=== PATIENT | female | born 1960 | race Caucasian/White ===

== ENCOUNTER 2017-01-09 18:35 | Emergency (ER) | payer BC ==
[~2017-01-09] VITALS: Ht 157.5 cm; Wt 80.7 kg
[~2017-01-09 18:35] MED LIST: ALLOPURINOL100 MG PO; ASPIRIN ADULT L81 M3 PO; AUGMENTIN 875-1 EACH PO; CLINDAMYCIN HC300 MG PO; DULOXETINE60 MG PO; FERROUS SULFAT325 M1 PO; GABAPENTIN300 MG PO; LOSARTAN POTASS1 TA1 PO; NEXIUM40 MG PO; SIMVASTATIN40 MG PO; TIZANIDINE HCL 44 MG PO; TOPAMAX100 MG PO; TRAZADONE HYDR100 MG PO; VALACYCLOVIR H500 M1 PO; ZOLPIDEM 10MG T10 MG PO
[2017-01-09 18:58] LABS: URINE BILIRUBIN - DIPSTICK 1+ (NEG); URINE BLOOD 1+ (NEG)
--- NOTE | 2017-01-09 19:18 | Urgent Treatment Center Report ---
History of Present Issue Date/Time Seen by Provider 01/09/171917 Visit Reason Pt arrived:Walked Presenting Problem:PT C/O POSSIBLE UTI. STATES HER LOWER BACK IS HURTING AND C/O PAIN WITH URINATION Location if Accident: Onset of symptoms date/time:/ or onset unknown for:MEDICAL HX UNKNOWN Have you (or family members/close friends) recently traveled outside the [place]? N If Yes, where/when: Have you had exposure to infectious disease within the past month? TB? Other? Specify: c/o constant dysuria w/ low back pain x 1-2 days. No fever. urine dark just this evening. Mild intermittent nausea "now that you mention it". Denies urinary frequency, fever, chills. No treatment prior to arrival. Hx UTIs but not x years. Source patient Exam Limitations no limitations ALLERGIES Coded Allergies: promethazine (From PHENERGAN) (Intermediate, 10/12/16) Home Medications Active Scripts Clindamycin Hcl (Clindamycin 300MG) 300 MG PO TID 10 Days Prov: 12/15/16 Amoxicillin/Potassium Clav (Augmentin 875-125 Tablet) 1 EACH PO BID 10 Days Prov: 12/15/16 Reported Medications Gabapentin (Gabapentin 300MG) 300 MG PO BID Topiramate (Topamax) 25 MG PO BID LOSARTAN/HYDROCHLOROTHIAZIDE (Losartan-Hctz 100-25 MG Tab) 1 TAB PO DAILY #30 TAB DULOXETINE HCL (Duloxetine) 60 MG PO DAILY #90 CAP Esomeprazole Magnesium (Nexium 40MG Cap) 40 MG PO BID Simvastatin (Simvastatin 40MG Tab) 40 MG PO DAILY #90 Aspirin (Aspirin EC) 81 MG PO DAILY #30 Zolpidem Tartrate (Zolpidem 10MG) 10 MG PO QHS #30 Allopurinol 100 MG PO DAILY #90 Ferrous Sulfate (Ferrous Sulfate 325MG) 325 MG PO DAILY #30 History Medical History General CAD? No Angina: No [place]: No Hypertension? Yes Hyperlipidemia? Yes CHF? No DVT? No PE? No COPD? No Asthma? No Anemia? No GERD? No Gastric ulcers? No GI Bleed? No Hernia? No Thyroid Problems? No Hypothyroidism? No CVA? No Seizures? No Diabetes? No Renal Insuffiency? No UTI? No Stones? No BPH? No GB Disease: Yes Nephritic Syndrome? No Asplenia? No Hepatitis? No Sickle Cell Disease? No Arthritis? No Migraines? No Cataracts? No Glaucoma? No MRSA? No HIV? No TB? No Anxiety? Yes Depression? No Cancer? No More? Yes Additional hx: IBS Immunization HX DT/Tetanus 06/18/11 Flu Refused Pneumonia Excluded/Contraindicated Surgical Hx Previous Surgery?Y ROTATOR CUFF HYSTERECTOMY RIGHT WRIST SURGERY BELLY TUCK GALLBLADDER Family History Family HX Diabetes Yes CAD Yes Hypertension Yes Hyperlipidemia Yes Cancer Yes TB No Social History Smoking Hx Smoker: Never Smoker Tobacco: No Alcohol Alcohol: No Review of Systems All Other Systems Reviewed and Negative Constitutional see HPI Gastrointestinal see HPI, denies abdominal pain Genitourinary see HPI. denies: discharge, hesitancy, genital lesions, other (vaginal pain). Musculoskeletal see HPI Skin denies change in color, denies lesions, denies lumps, denies rash Psychiatric/Neurological denies headache Physical Exam Vital Signs Vital Signs Date Time Temp Pulse Resp B/P Pulse O2 O2 Flow FiO2 Ox Delivery Rate 01/09 2026 98.8 104 18 148/73 97 01/09 185 98.8 104 18 148/73 97 General Appearance no apparent distress, obese Respiratory Status No: respiratory distress. Cardiovascular no peripheral edema Gastrointestinal normal bowel sounds, non tender, soft, no guarding, no rebound, mild suprapubic tenderness, no bladder distention Back no CVA tenderness Neurologic alert, oriented x 3 Skin normal color, warm/dry Medical Decision Making LABS/Meds/Orders Pt receiving controlled substance in ED? No Results/Orders Laboratory Tests 01/09/17 1845: Urine Color YELLOW, Urine Appearance Clear, Urine pH 6.0, Ur Specific [place] 1.025, Urine Protein 30, Urine Ketones NEGATIVE, Urine Blood 1+ H, Urine Nitrate NEGATIVE, Urine Bilirubin 1+ H, Urine Urobilinogen 0.2, Ur Leukocyte Esterase TRACE H, Urine Glucose NEGATIVE Current Medication Orders Sig/Andra Start time Last Medication Dose Route Stop Time Status Admin Phenazopyridine HCl 200 MG ONCE ONE 01/09 2015 DC 01/09 PO 01/09 Trimethoprim/ 1 TABLET ONCE ONE 01/09 2015 DCr 01/09 Sulfamethoxazole PO 01/09 Phenazopyridine HCl 0 .STK-MED ONE 01/09 2013 DC PO Trimethoprim/ 0 .STK-MED ONE 01/09 2011 DC Sulfamethoxazole PO Orders Procedure Date/time Status CULTURE, URINE 01/[address] [facility] URINE DIPSTICK 01/09 1845 Complete Departure Departure Time of Disposition 2002 Disposition DC Home or Self Care(routine) Clinical Impression Primary Impression: UTI (urinary tract infection) Qualifiers: Urinary tract infection type: site unspecified Hematuria presence: with hematuria Qualified Code: N39.0 - Urinary tract infection, site not specified Condition STABLE Referrals Zaina Vasquez APRN (Family) * Be SURE to follow up anytime for new or worsening symptoms, AND in 48 hours for culture resultsAND in 10-14 days to repeat UA and ensure infection resolved and blood no longer present. Patient Instructions DI for Urinary Tract Infection (UTI) Additional Instructions * increase fluids, Water and NOT soda or tea * Start antibiotic tomorrow since we gave first dose in clinic and be sure to take as ordered for the FULL length of time although you should start to see improvement over the next 48 hours. * pyridium as needed. Remember this will turn your urine ORANGE, this is normal but will stain whatever it gets on. This includes tears and contacts. Try not to wear contacts due to risk of staining orange. * You should not need the pyridium longer than 48 hours. If so, follow up with primary care to review urine culture and ensure antibiotic is adequate * Be sure to let your PCP (or whoever you follow up with) know we sent urine culture so they can request records and ensure you are on the appropriate antibiotic if you are not getting better or getting worse!!! Discharge Counseling Counseled pt/family regarding diagnosis, test results, medications/RX, home care, follow up needs Prescriptions Current Visit Scripts SULFAMETHOXAZOLE W/TRIMETHOPRI (Bactrim Ds Tab) 1 TABLET PO BID #13 TAB gave first dose in clinic Phenazopyridine HCl (Pyridium) 200 MG PO TIDP PRN dysuria #6 TAB at 2109
[2017-01-09] MEDS ORDERED: PYRIDIUM200 M2 PO (20:06)
[2017-01-09] MEDS ORDERED: BACTRIM DS 8001 TA1 PO (20:06)
[2017-01-09 20:26] VITALS: BP 148/73
== END 2017-01-09 20:26 | disposition home or self-care (01) ==
LOC: UTC 18:35
PROVIDERS: Nurse Practitioner Family
DX: N39.0 Urinary tract infection, site not specified (principal); I10 Essential (primary) hypertension; E78.5 Hyperlipidemia, unspecified; F41.9 Anxiety disorder, unspecified; Z79.899 Other long term (current) drug therapy; Z88.8 Allergy status to other drugs, medicaments and biological substances; Z79.82 Long term (current) use of aspirin

== ENCOUNTER → 2017-01-12 | Outpatient (CLI) | payer BC ==
[~2017-01-12] MED LIST changes: +BACTRIM DS 8001 TA1 PO; +PYRIDIUM200 M2 PO
[2017-01-12 17:15] LABS: BUN 11 mg/dL (7-18)
[2017-01-12 17:32] LABS: GFR (ESTIMATED) 87 ML/MIN (59-)
[2017-01-14 05:36] LABS: RA Latex Turbid. <10.0 IU/mL (0.0-13.9)
[2017-01-14 16:37] LABS: Albumin 3.8 g/dL (2.9-4.4); Alpha-1-Globulin 0.2 g/dL (0.0-0.4); Alpha-2-Globulin 0.7 g/dL (0.4-1.0); Gamma Globulin 1.1 g/dL (0.4-1.8); Protein, Total 7.1 g/dL (6.0-8.5)
[2017-01-15 03:36] LABS: Protein C-Functional 173 % (73-180)
== END ==
LOC: LAB 16:10
PROVIDERS: Nurse Practitioner Family
DX: M79.7 Fibromyalgia (principal); R53.82 Chronic fatigue, unspecified

== ENCOUNTER → 2017-01-24 | Outpatient (CLI) | payer BC ==
[2017-01-24 17:21] LABS: BUN 10 mg/dL (7-18)
[2017-01-24 17:28] LABS: GFR (ESTIMATED) 104 ML/MIN (59-)
== END ==
LOC: LAB 15:05
PROVIDERS: Nurse Practitioner Family
DX: E87.6 Hypokalemia (principal)

== ENCOUNTER → 2017-02-21 | Outpatient (CLI) | payer BC ==
[2017-02-23 12:41] LABS: RA Latex Turbid. <10.0 IU/mL (0.0-13.9)
[2017-02-24 12:36] LABS: Antinuclear Antibodies, IFA Negative (.)
== END ==
LOC: LAB 18:18
PROVIDERS: Emergency Medicine
DX: G89.29 Other chronic pain (principal)

== ENCOUNTER 2017-03-20 14:28 | Emergency (ER) | payer BC ==
[~2017-03-20] VITALS: Ht 157.5 cm; Wt 86.6 kg
--- NOTE | 2017-03-20 14:59 | Urgent Treatment Center Report ---
History of Present Issue Date/Time Seen by Provider 03/20/17 5316 Visit Reason Pt arrived:Walked Presenting Problem:CURRENTLY ON Z-NED, EAR ACHE, CONGESTION, FEELING WORSE Location if Accident: Onset of symptoms date/time:/ or onset unknown for:MEDICAL HX UNKNOWN Have you (or family members/close friends) recently traveled outside the [place]? N If Yes, where/when: Have you had exposure to infectious disease within the past month? TB? Other? Specify: Patient state that she was seen on Tuesday and given Z-pack State that she has been taking the Zpack but her symptoms have continued to get worse. State that her left ear has been hurting and she is having sinus pain and congestion State that she noticed that her sinus drainage appeared thicker and darker ALLERGIES Coded Allergies: promethazine (From PHENERGAN) (Intermediate, 10/12/16) Home Medications Active Scripts SULFAMETHOXAZOLE W/TRIMETHOPRI (Bactrim Ds Tab) 1 TABLET PO BID #13 TAB Prov: 01/09/17 Phenazopyridine HCl (Pyridium) 200 MG PO TIDP PRN dysuria #6 TAB Prov: 01/09/17 Clindamycin Hcl (Clindamycin 300MG) 300 MG PO TID 10 Days Prov: 12/15/16 Amoxicillin/Potassium Clav (Augmentin 875-125 Tablet) 1 EACH PO BID 10 Days Prov: 12/15/16 Reported Medications Gabapentin (Gabapentin 300MG) 300 MG PO BID Topiramate (Topamax) 25 MG PO BID LOSARTAN/HYDROCHLOROTHIAZIDE (Losartan-Hctz 100-25 MG Tab) 1 TAB PO DAILY #30 TAB DULOXETINE HCL (Duloxetine) 60 MG PO DAILY #90 CAP Esomeprazole Magnesium (Nexium 40MG Cap) 40 MG PO BID Simvastatin (Simvastatin 40MG Tab) 40 MG PO DAILY #90 Aspirin (Aspirin EC) 81 MG PO DAILY #30 Zolpidem Tartrate (Zolpidem 10MG) 10 MG PO QHS #30 Allopurinol 100 MG PO DAILY #90 Ferrous Sulfate (Ferrous Sulfate 325MG) 325 MG PO DAILY #30 History Medical History General CAD? No Angina: No [place]: No Hypertension? Yes Hyperlipidemia? Yes CHF? No DVT? No PE? No COPD? No Asthma? No Anemia? No GERD? No Gastric ulcers? No GI Bleed? No Hernia? No Thyroid Problems? No Hypothyroidism? No CVA? No Seizures? No Diabetes? No Renal Insuffiency? No UTI? No Stones? No BPH? No GB Disease: Yes Nephritic Syndrome? No Asplenia? No Hepatitis? No Sickle Cell Disease? No Arthritis? No Migraines? No Cataracts? No Glaucoma? No MRSA? No HIV? No TB? No Anxiety? Yes Depression? No Cancer? No More? Yes Additional hx: IBS Immunization HX DT/Tetanus 06/18/11 Flu Refused Pneumonia Excluded/Contraindicated Surgical Hx Previous Surgery?Y ROTATOR CUFF HYSTERECTOMY RIGHT WRIST SURGERY BELLY ALEJANDRA GALLBLADDER Family History Family HX Diabetes Yes CAD Yes Hypertension Yes Hyperlipidemia Yes Cancer Yes TB No Social History Smoking Hx Smoker: Never Smoker Tobacco: No Alcohol Alcohol: No Review of Systems All Other Systems Reviewed and Negative Constitutional fever ENT ear pain, nose congestion, throat pain. Respiratory cough Physical Exam Vital Signs Vital Signs Date Time Temp Pulse Resp B/P Pulse O2 O2 Flow FiO2 Ox Delivery Rate 03/20 1441 97.2 73 18 105/72 97 General Appearance normal appearance, WD/WN, no apparent distress Ear, Nose, Throat nasal congestion, Throat red irritated, drainage noted and tenderness maxillary sinus currently taking zpack Respiratory Status Yes: trachea midline, chest symmetrical, non tender chest. No: respiratory distress. Lung Sounds bilateral: normal breath sounds, lungs clear. Cardiovascular normal exam, regular rate/rhythm, no peripheral edema Neurologic alert, normal exam, oriented x 3 Medical Decision Making LABS/Meds/Orders Pt receiving controlled substance in ED? No Results/Orders Laboratory Tests 03/20/17 1459: Influenza Type A Ag NOT DETECTED, Influenza Type B Ag NOT DETECTED Current Medication Orders Sig/Andra Start time Last Medication Dose Route Stop Time Status Admin Ceftriaxone Sodium 1 GM ONCE ONE 03/20 1530 AC IM 03/20 1531 Lidocaine HCl 0 ONCE ONE 03/20 1530 AC IM 03/20 1531 Methylprednisolone 125 MG ONCE ONE 03/20 1530 AC Sodium Succinate IM 03/20 1531 Orders Procedure Date/time Status FLC FLU A,B 03/20 1459 Complete Departure Departure Time of Disposition 1524 Disposition DC Home or Self Care(routine) Clinical Impression Primary Impression: Upper respiratory infection Qualifiers: URI type: unspecified URI Qualified Code: J06.9 - Acute upper respiratory infection, unspecified Condition STABLE Referrals Vanessa WHITE,Sundeep Bran (Family) Patient Instructions DI for Ear Pain-Adult, DI for Nasal Congestion, Sore Throat Additional Instructions * Monitor Temp. Tylenol and/or Ibuprofen as needed. ER if fever is no less than 101 despite alternating Tylenol and Ibuprofen * Encourage fluids, water, Gatorade, powerade, pedialyte if /toddler/or child * Warm salt water gargles for throat irritation *Warm fluids *Sore throat lozenges *Sleep elevated *humidifier or vaporizer Lots of rest Increase fluids, water, Gatorade, powerade *Flonase 2 sprays each nostril daily but may take 2-3 days to notice improvement with it *Bromfed may cause drowsiness. Know how it effect you or your child. Before driving, caring for small children or sending your child to school *Your throat swab was sent to lab for culture. Those results area typically sent to your primary care physician. Be sure to follow up in 2-3 days if no improvement so they can review those results and treat if necessary If you dont have primary care I recommend you get one, but in the mean time you will have to return to a walk in clinic Follow up IMMEDIATELY for new or worsening of symptoms OR no noticeable improvement over the next 48-72 hours. 911 immediately for any life threatening symptoms such as chest pain or difficulty breathing Discharge Counseling Counseled pt/family regarding diagnosis Prescriptions Current Visit Scripts Loratadine (Claritin 10MG) 10 MG PO DAILY #30 TAB Fluticasone Propionate (Flonase 50 Mcg Nasal [place]) 2 SPRAY NA DAILY #1 BOT Guaifenesin (Mucinex) 1,200 MG PO BID #20 [address] Dextromethorphan Polistirex (Delsym) 10 ML PO Q12H #150 ML at 3614
--- OUTSIDE RECORDS SUMMARY | 2017-03-20 15:04 | External Medical Summary Rpt | CCD ---
Author Author , YAS SORENSON Address Unknown Phone [email or web address] Purpose Continuity of Care Document - 01-09-2014 through 2016 Problems Code Diagnosis DOS Provider Status E66.9 Obesity, unspecified E87.6 HYPOKALEMIA F33.1 Major depressive disorder, recurrent, moderate F39 Unspecified mood (affective) disorder G47.00 Insomnia, unspecified G89.29 Other chronic pain G89.4 Chronic pain syndrome I10 Essential (primary) hypertensio n J18.1 LOBAR PNEUMONIA, UNSPECIFIED ORGANISM J98.11 Atelectasis K76.0 Fatty (change of) liver, not elsewhere classified M25.512 Pain in left shoulder M46.1 Sacroiliiti s, not elsewhere classified M54.2 Cervicalgia 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 N81.6 Rectocele R06.02 Shortness of breath R07.9 Chest pain, unspecified R10.84 GENERALIZED ABDOMINAL PAIN R52 Pain, unspecified R53.81 Other malaise R74.8 Abnormal levels of other serum enzymes W89.1XXA Exposure to tanning bed, initial encounter Z48.89 Encounter for other specified surgical aftercare Results Labs Lab Lab Date Result Refere Interp Status Commen Order Detail nces retati t Range on Erythrocyte sedimentation rate by mary (02-21-2017 15:35) Erythro = 12 0-30 complet cyte 017 mm/hr ed sedimen 15:35 tation rate by mary Serum or plasma uric acid measurement ( (02-21-2017 15:35) Serum = 6.9 2.6-7.2 complet or 017 mg/dL ed plasma 15:35 uric acid measure ment ( Basic metabolic panel (01-24-2017 15:07) Serum = 141 136-145 complet sodium 017 mmoL/L ed measure 15:07 ment Serum = 3.9 3.5-5.1 complet potassi 017 mmoL/L ed um 15:07 measure ment Serum = 84 74-106 complet or 017 mg/dL ed plasma 15:07 glucose measure ment (mas Estimat = 104 59- complet ed 017 ML/MIN ed glomeru 15:07 lar filtrat ion rate (GF Serum = 0.6 0.55-1. complet or 017 mg/dL 02 ed plasma 15:07 creatin ine measure ment ( Carbon = 30 21.0-32 complet dioxide 017 mmoL/L .0 ed 15:07 measure ment Serum = 102 98-107 complet or 017 mmoL/L ed plasma 15:07 chlorid e measure ment (mo Serum = 10.0 8.5-10. complet or 017 mg/dL 1 ed plasma 15:07 calcium measure ment (mas Serum = 10 7-18 complet or 017 mg/dL ed plasma 15:07 urea nitroge n measure men Urinalysis macro (dipstick) panel in Urine (01-09-2017 18:45) Appeara Clear CLEAR complet nce of 017 ed Urine 18:45 Bilirub 1+ NEG Abnorma complet in 017 l ed [Presen 18:45 ce] in Urine by Test strip Erythro 1+ NEG Abnorma complet cytes 017 l ed [Presen 18:45 ce] in Urine Color YELLOW YELLOW complet of 017 ed Urine 18:45 Ketones NEGATIV NEG complet 017 E ed [Presen 18:45 ce] in Urine by Automat ed test strip Leukocy TRACE NEG Abnorma complet te 017 l ed esteras 18:45 e [Presen ce] in Urine by Automat ed test strip Nitrite NEGATIV NEG complet 017 E ed [Presen 18:45 ce] in Urine by Test strip Urobili 0.2 NEG complet nogen 017 ed [Presen 18:45 ce] in Urine by Test strip Legionella pneumophila 1 Ag [Presence] in Urine by Immunoassay (12-15-2016 10:30) Legione Negativ Negativ complet lla 017 e e ed pneumop 10:30 velia 1 Ag [Presen ce] in Urine by Immunoa ssay Blood product special preparation [Type] (12-13-2016 19:27) Blood BLOOD complet product 017 UNIT ed 19:27 RELEASE special prepara tion [Type] Blood product special preparation [Type] (12-13-2016 14:00) Blood BLOOD complet product 017 UNIT ed 14:00 RELEASE special prepara tion [Type] Blood type & Crossmatch panel in Blood (12-13-2016 11:00) Blood NEGATIV NEGATIV complet group 017 E E ed antibod 11:00 y screen [Presen ce] in Serum or Plasma Rh POSITIV complet [Type] 017 E ed in 11:00 Blood ABO O complet group 017 ed [Type] 11:00 in Blood Blood type & Crossmatch panel in Blood (12-13-2016 11:00) Major COMPAT complet crossma 017 ed tch 11:00 [interp retatio n] Major COMPAT complet crossma 017 ed tch 11:00 [interp retatio n] by Immedia te spin Bacteria identified in Sputum by Culture (12-11-2016 15:15) Bacteri YEAST: complet a 017 MIGUEL A ed identif 15:15 ied in ALBICAN Sputum S by Culture Bacteri LAB complet a 017 WILL ed identif 15:15 HOLD ied in YEAST Sputum FOR 5 by DAYS. Culture FOR FURTHER TESTING PLEASE Bacteri CONTACT complet a 017 THE ed identif 15:15 LAB. ied in Sputum by Culture Bacteri Yeast complet a 017 ed identif 15:15 ied in Sputum by Culture Differential panel, method unspecified - (12-10-2016 16:37) Hypochr 1+ complet omia 017 ed [Presen 16:37 ce] in Blood LYMPH 18 % 10% - Normal complet 017 50% ed 16:37 Platele MARKED complet ts 017 INCREAS ed [Presen 16:37 E ce] in Blood by Light microsc opy
--- OUTSIDE RECORDS SUMMARY | 2017-03-20 15:04 | External Medical Summary Rpt | CCD ---
Demographics Preferred Language Wolof Marital Status Unknown Alevism Affiliation Unknown Race Unknown Ethnic Group Unknown Author Author CRISTOFER Address Unknown Phone Immunization No patient found.
--- OUTSIDE RECORDS SUMMARY | 2017-03-20 15:04 | External Medical Summary Rpt | CCD ---
Author Author , YAS SORENSON Address Unknown Phone [email or web address] Purpose Continuity of Care Document - 01-09-2014 [...]
--- OUTSIDE RECORDS SUMMARY | 2017-03-20 15:04 | External Medical Summary Rpt | CCD ---
Demographics Preferred Language Lao Marital Status Unknown Alevism Affiliation Unknown Race Unknown Ethnic Group Unknown Author Author CRISTOFER Address Unknown Phone Immunization No patient found.
--- OUTSIDE RECORDS SUMMARY | 2017-03-20 15:08 | External Medical Summary Rpt ---
Author Author YAS Felicita, [employer] Address Unknown Phone Unavailable Results Erythrocyte sedimentation rate by Westergren method Observa Value Referen Units Interpr Notes Date tion ce etation Range Erythrocy 0 - 30 mm/hr Normal No Feb 21 te informati 2016 3:35 sedimenta on in PM tion rate source by data Westergre n method Urate [Mass/volume] in Serum or Plasma Observa Value Referen Units Interpr Notes Date tion ce etation Range Urate 2.6 - 7.2 mg/dL Normal No Feb 21 [Mass/vol informati 2016 3:35 ume] in on in PM Serum or source Plasma data Basic metabolic panel in Blood Observa Value Referen Units Interpr Notes Date tion ce etation Range Urea 7 - 18 mg/dL Normal No Jan 24 nitrogen informati 2016 3:07 [Mass/vol on in PM ume] in source Serum or data Plasma Calcium 8.5 - mg/dL Normal No Jan 9 [Mass/vol 10.1 informati 2017 3:07 ume] in on in PM Serum or source Plasma data Chloride 98 - 107 mmoL/L Normal No Jan 9 [Moles/vo informati 2016 3:07 lume] in on in PM Serum or source Plasma data Carbon 21.0 - mmoL/L Normal No Jan 9 dioxide, 32.0 informati 2017 3:07 total on in PM [Moles/vo source lume] in data Serum or Plasma Creatinin 0.55 - mg/dL Normal No Jan 9 e 1.02 informati 2017 3:07 [Mass/vol on in PM ume] in source Serum or data Plasma Estimated 59- ML/MIN No REFERENCE Oct 9 informati RANGE: 2017 3:07 glomerula on in >60 PM r source ML/MIN/1. filtratio data 73 SQUARE n rate METERSIf (GF this patient is -A merican, then multiply theresult by 1.210. Glucose 74 - 106 mg/dL Normal No Oct 9 [Mass/vol informati 2016 3:07 ume] in on in PM Serum or source Plasma data Potassium 3.5 - 5.1 mmoL/L Normal No Jan 24 informati 2016 3:07 [Moles/vo on in PM lume] in source Serum or data Plasma Sodium 136 - 145 mmoL/L Normal No Jan 24 [Moles/vo informati 2016 3:07 lume] in on in PM Serum or source Plasma data Comprehensive metabolic 2000 panel in Serum or Plasma Observa Value Referen Units Interpr Notes Date tion ce etation Range Albumin/G 1.1 - 1.8 No Normal No Sep 27 lobulin informati informati 2017 4:12 [Mass on in on in PM ratio] in source source Serum or data data Plasma Albumin 3.4 - 5.0 gm/dL Normal No Jan 12 [Mass/vol informati 2016 4:12 ume] in on in PM Serum or source Plasma data Alkaline 46 - 116 U/L Normal No Jan 12 phosphata informati 2017 4:12 se on in PM [Enzymati source c data activity/ volume] in Serum or Plasma Bilirubin 0.2 - 1.0 mg/dL Normal No Dec 27 .total informati 2016 4:12 [Mass/vol on in PM ume] in source Serum or data Plasma Urea 7 - 18 mg/dL Normal No Jan 12 nitrogen informati 2017 4:12 [Mass/vol on in PM ume] in source Serum or data Plasma Calcium 8.5 - mg/dL Normal No Jan 12 [Mass/vol 10.1 informati 2016 4:12 ume] in on in PM Serum or source Plasma data Chloride 98 - 107 mmoL/L Normal No Jan 12 [Moles/vo informati 2017 4:12 lume] in on in PM Serum or source Plasma data Carbon 21.0 - mmoL/L Normal No Sep dioxide, 32.0 informati 2017 4:12 total on in PM [Moles/vo source lume] in data Serum or Plasma Creatinin 0.55 - mg/dL Normal No Dec 27 e 1.02 informati 2017 4:12 [Mass/vol on in PM ume] in source Serum or data Plasma Estimated 59- ML/MIN No REFERENCE Sep 27 informati RANGE: 2017 4:12 glomerula on in >60 PM r source ML/MIN/1. filtratio data 73 SQUARE n rate METERSIf (GF this patient is -A merican, then multiply theresult by 1.210. Globulin 1.3 - 3.2 gm/dL High No Sep 27 [Mass/vol informati 2017 4:12 ume] in on in PM Serum source data Glucose 74 - 106 mg/dL Normal No Sep 27 [Mass/vol informati 2017 4:12 ume] in on in PM Serum or source Plasma data Potassium 3.5 - 5.1 mmoL/L Low alert Sep 27 2017 4:12 [Moles/vo CRITICAL PM lume] in RESULTS Serum or Plasma RESU LTS CALLED TO: 01/12/17 1732 [place] n[place] Sodium 136 - 145 mmoL/L Normal No Sep 27 [Moles/vo informati 2017 4:12 lume] in on in PM Serum or source Plasma data Aspartate 15 - 37 U/L High No Sep 27 informati 2017 4:12 aminotran on in PM sferase source [Enzymati data c activity/ volume] in Serum or Plasma Alanine 12 - 78 U/L High No Sep 27 aminotran informati 2017 4:12 sferase on in PM [Enzymati source c data activity/ volume] in Serum or Plasma Protein 6.4 - 8.2 gm/dL Normal No Sep 27 [Mass/vol informati 2017 4:12 ume] in on in PM Serum or source Plasma data Urinalysis macro (dipstick) panel in Urine Observa Value Referen Units Interpr Notes Date tion ce etation Range Appeara Clear CLEAR No No No Sep 24 nce of informa informa informa 2017 Urine tion in tion in tion in 6:45 PM source source source data data data Bilirub 1+ NEG No Abnorma BILIRUB Sep 24 in informa l IN 2017 [Presen tion in CONFIRM 6:45 PM ce] in source ED WITH Urine data by Test ICTOTES strip T Erythro 1+ NEG No Abnorma No Sep 24 cytes informa l informa 2016 [Presen tion in tion in 6:45 PM ce] in source source Urine data data Color YELLOW YELLOW No No No Sep 24 of informa informa informa 2017 Urine tion in tion in tion in 6:45 PM source source source data data data Glucose NEG No No No Dec 24 [Mass/vol informati informati informati 2016 6:45 ume] in on in on in on in PM Urine by source source source Test data data data strip Ketones NEGATIV NEG mg/dL No No Dec 24 E informa informa 2016 [Presen tion in tion in 6:45 PM ce] in source source Urine data data by Automat ed test strip pH of 5.0 - 8.5 No Normal No Sep 24 Urine informati informati 2017 6:45 on in on in PM source source data data Protein NEG mg/dL No No Dec 24 [Mass/vol informati informati 2016 6:45 ume] in on in on in PM Urine by source source Automated data data test strip Specific 1.005 - No Normal No Dec 24 gravity 1.030 informati informati 2016 6:45 of Urine on in on in PM source source data data Leukocy TRACE NEG No Abnorma No Dec 24 te informa l informa 2017 esteras tion in tion in 6:45 PM e source source [Presen data data ce] in Urine by Automat ed test strip Nitrite NEGATIV NEG No No No Dec 24 E informa informa informa 2016 [Presen tion in tion in tion in 6:45 PM ce] in source source source Urine data data data by Test strip Urobili 0.2 NEG E.U./dL No No Dec 24 nogen informa informa 2016 [Presen tion in tion in 6:45 PM ce] in source source Urine data data by Test strip Protein Electrophoresis Observa Value Referen Units Interpr Notes Date tion ce etation Range Protein 6.0 - 8.5 g/dL No No Dec 15 [Mass/vol informati informati 2016 1:40 ume] in on in on in PM Serum or source source Plasma data data Please Comment . No No Protein Dec 15 note: informa informa 2017 tion in tion in electro 1:40 PM source source phoresi data data s scan will follow via compute r,mail, or rubber mixer deliver [place]uz rmed at: [facility] - [facility] [address], [place], [place] [id number] Directo r: Neo lin PhD, Phone: [phone] Albumin 2.9 - 4.4 g/dL Low No Dec 15 [Mass/vol informati 2017 1:40 ume] in on in PM Serum or source Plasma by data Electroph oresis Alpha 1 0.0 - 0.4 g/dL High No Dec 15 globulin informati 2016 1:40 [Mass/vol on in PM ume] in source Serum or data Plasma by Electroph oresis Alpha 2 0.4 - 1.0 g/dL High No Dec 15 globulin informati 2016 1:40 [Mass/vol on in PM ume] in source Serum or data Plasma by Electroph oresis Beta 0.7 - 1.3 g/dL No No Dec 15 globulin informati informati 2016 1:40 [Mass/vol on in on in PM ume] in source source Serum or data data Plasma by Electroph oresis Gamma 0.4 - 1.8 g/dL No No Dec 15 globulin informati informati 2016 1:40 [Mass/vol on in on in PM ume] in source source Serum or data data Plasma by Electroph oresis Protein.m Not g/dL No No Dec 15 onoclonal Observed informati informati 2016 1:40 on in on in PM [Mass/vol source source ume] in data data Serum or Plasma by Electroph oresis Globulin 2.2 - 3.9 g/dL No No Dec 15 [Mass/vol informati informati 2016 1:40 ume] in on in on in PM Serum by source source calculati data data on Albumin/G 0.7 - 1.7 No No No Dec 15 lobulin informati informati informati 2016 1:40 [Mass on in on in on in PM ratio] in source source source Serum or data data data Plasma MISCELLANEOUS TEST Observa Value Referen Units Interpr Notes Date ti ce etation Range MISCELL NEGATIV No No No SEE Dec 15 ANEOUS E informa informa informa SEPARAT 2017 TEST tion in tion in tion in E 10:30 source source source REPORT AM data data data FOR NORMAL VALUES AND/OR INTERPR ETATION Legionella pneumophila 1 Ag [Presence] in Urine by Immunoassay Observa Value Referen Units Interpr Notes Date ti ce etation Range Legione Negativ Negativ No No Presump Dec 15 lla e e informa informa tive 2017 pneumop tion in tion in negativ 10:30 velia 1 source source e for AM Ag data data L. [Presen pneumop ce] in [facility] Urine serogro by up 1 Immunoa antigen ssay in urine, suggest ing no recent or current infecti on.Legi onnaire s' disease cannot be ruled out since otherse rogroup s and species may also cause disease .Perfor med at: [facility] - [facility] [address] [id number] Directo r: Maynor Herrera MD, Phone: [phone] Hemoglobin & Hematocrit panel in Blood Observa Value Referen Units Interpr Notes Date tion ce etation Range COMMENTS TO PARTITION SETTER: ONE HR POST TRANSFUSION Hematocri 37.0 - % Low No Dec 13 t [Volume 47.0 informati 2017 9:13 on in PM Fraction] source of Blood data Hemoglobi 12.2 - g/dL Low No Dec 13 n 16.2 informati 2017 9:13 [Mass/vol on in PM ume] in source Blood data Blood product special preparation [Type] Observa Value Referen Units Interpr Notes Date tion ce etation Range Blood BLOOD No No No BLOOD Dec 13 product UNIT informa informa informa UNIT # 2017 RELEASE tion in ti in ti in : [id number] 7:27 PM special source source source 17 data data data [id number] prepara O POS tion RELEASE [Type] D Darline Vidal Blood product special preparation [Type] Observa Value Referen Units Interpr Notes Date ti ce etation Range Blood BLOOD No No No BLOOD Dec 13 product UNIT informa informa informa UNIT # 2017 RELEASE tion in tion in ti in : 2:00 PM special source source source [id number] data data data [id number] prepara 2 tion [id number] [Type] LEASED 7 Rachel Valentin Blood type & Crossmatch panel in Blood Observa Value Referen Units Interpr Notes Date tion ce etation Range Hold? N Transfuse now? 2 UNITS NOW Blood NEGATIV NEGATIV No No No Dec 13 group E E informa informa informa 2017 antibod tion in tion in tion in 11:00 y source source source AM screen data data data [Presen ce] in Serum or Plasma Rh POSITIV No No No No Dec 13 [Type] E informa informa informa informa 2017 in tion in tion in tion in tion in 11:00 Blood source source source source AM data data data data ABO O No No No No Dec 13 group informa informa informa informa 2017 [Type] tion in tion in tion in tion in 11:00 in source source source source AM Blood data data data data Blood type & Crossmatch panel in Blood Observa Value Referen Units Interpr Notes Date ti ce etation Range Hold? N Transfuse now? 2 UNITS NOW Major COMPAT No No No No Dec 13 crossma informa informa informa informa 2017 tch tion in tion in tion in ti in 11:00 [interp source source source source AM retatio data data data data n] Major COMPAT No No No No Dec 13 crossma informa informa informa informa 2017 tch tion in tion in tion in in 11:00 [interp source source source source AM retatio data data data data n] by Immedia te spin Blood type & Crossmatch panel in Blood Observa Value Referen Units Interpr Notes Date ti ce etation Range Hold? N Transfuse now? 2 UNITS NOW Major COMPAT No No No No Dec 13 crossma informa informa informa informa 2017 tch tion in tion in tion in tion in 11:00 [interp source source source source AM retatio data data data data n] Major COMPAT No No No No Dec 13 crossma informa informa informa informa 2017 tch tion in tion in tion in tion in 11:00 [interp source source source source AM retatio data data data data n] by Immedia te spin Basic metabolic panel in Blood Observa Value Referen Units Interpr Notes Date tion ce etation Range Urea 7 - 18 mg/dL Low No Dec 13 nitrogen informati 2016 6:18 [Mass/vol on in AM ume] in source Serum or data Plasma Calcium 8.5 - mg/dL Normal No Dec 13 [Mass/vol 10.1 informati 2016 6:18 ume] in on in AM Serum or source Plasma data Chloride 98 - 107 mmoL/L Normal No Dec 13 [Moles/vo informati 2016 6:18 lume] in on in AM Serum or source Plasma data Carbon 21.0 - mmoL/L Normal No Dec 13 dioxide, 32.0 informati 2016 6:18 total on in AM [Moles/vo source lume] in data Serum or Plasma Creatinin 0.55 - mg/dL Normal No Dec 13 e 1.02 informati 2016 6:18 [Mass/vol on in AM ume] in source Serum or data Plasma Creatinin 50 - 200 ML/MIN Normal No Dec 13 e renal informati 2016 6:18 clearance on in AM source predicted data by Cockcroft -Gault formula Estimated 59- ML/MIN No REFERENCE Dec 13 informati RANGE: 2017 6:18 glomerula on in >60 AM r source ML/MIN/1. filtratio data 73 SQUARE n rate METERSIf (GF this patient is -A merican, then multiply theresult by 1.210. Glucose 74 - 106 mg/dL High No Dec 13 [Mass/vol informati 2016 6:18 ume] in on in AM Serum or source Plasma data Potassium 3.5 - 5.1 mmoL/L Low No Dec 13 informati 2016 6:18 [Moles/vo on in AM lume] in source Serum or data Plasma Sodium 136 - 145 mmoL/L Normal No Dec 13 [Moles/vo informati 2016 6:18 lume] in on in AM Serum or source Plasma data CBC W Auto Differential panel in Blood Observa Value Referen Units Interpr Notes Date tion ce etation Range Basophils 0 - 0.2 K/MM3 Normal No Dec 13 informati 2016 6:18 [#/volume on in AM ] in source Blood by data Automated count Basophils 0.1 - 2.0 % Normal No Dec 13 /100 informati 2017 6:18 leukocyte on in AM s in source Blood by data Automated count Eosinophi 0.0 - 0.4 K/mm3 Normal No Dec 13 ls informati 2016 6:18 [#/volume on in AM ] in source Blood by data Automated count Eosinophi 0.1 - % Normal No Dec 13 ls/100 12.0 informati 2016 6:18 leukocyte on in AM s in source Blood by data Automated count Granulocy 1.8 - 7.8 K/mm3 Normal No Dec 13 adelso informati 2016 6:18 [#/volume on in AM ] in source Blood by data Automated count Granulocy 37.0 - % Normal No Dec 13 adelso/100 80.0 informati 2016 6:18 leukocyte on in AM s in source Blood by data Automated count Hematocri 37.0 - % Low No Dec 13 t [Volume 47.0 informati 2016 6:18 on in AM Fraction] source of Blood data Hemoglobi 12.2 - g/dL Low alert Dec 13 n 16.2 2016 6:18 [Mass/vol CRITICAL AM ume] in RESULTS Blood RESU LTS CALLED TO: [email or web address] 12/13/16 0651 Alicia Del Valle Lymphocyt 0.7 - 4.5 K/mm3 Normal No Dec 13 informati 2016 6:18 [#/volume on in AM ] in source Unspecifi data ed specimen by Automated count Lymphocyt 10 - 50.0 % Normal No Dec 13 informati 2016 6:18 [#/volume on in AM ] in source Unspecifi data ed specimen by Automated count Erythrocy 27 - 31.2 pg Normal No Dec 13 te mean informati 2016 6:18 corpuscul on in AM ar source hemoglobi data n [Entitic mass] Erythrocy 31.8 - g/dl Normal No Dec 13 te mean 35.4 informati 2016 6:18 corpuscul on in AM ar source hemoglobi data n concentra tion [Mass/vol ume] by Automated count Erythrocy 82.2 - fl Normal Dec 13 te mean 97.8 informati 2016 6:18 corpuscul on in AM ar volume source [Entitic data volume] by Automated count Monocytes 0.1 - 1.0 K/mm3 Normal No Dec 13 informati 2016 6:18 [#/volume on in AM ] in source Blood by data Automated count Monocytes 1.7 - 9.3 % Normal No Dec 13 /100 informati 2017 6:18 leukocyte on in AM s in source Blood by data Automated count Platelet 7.4 - fl Normal Dec 13 mean 10.4 informati 2016 6:18 volume on in AM [Entitic source volume] data in Blood by Automated count Platelets 142 - 424 K/mm3 High No Dec 13 informati 2016 6:18 [#/volume on in AM ] in source Blood data Erythrocy 4.2 - 5.4 M/mm3 Low No Dec 13 adelso informati 2016 6:18 [#/volume on in AM ] in source Amniotic data fluid Erythrocy 11.5 - % Normal No Dec 13 te 17.5 informati 2016 6:18 distribut on in AM ion width source [Entitic data volume] by Automated count Leukocyte 4.8 - K/MM3 High No Dec 13 s 10.8 informati 2016 6:18 [#/volume on in AM ] in source Blood data Basic metabolic panel in Blood Observa Value Referen Units Interpr Notes Date tion ce etation Range Urea 7 - 18 mg/dL Low No Dec 12 nitrogen informati 2016 6:35 [Mass/vol on in AM ume] in source Serum or data Plasma Calcium 8.5 - mg/dL Normal No Dec 12 [Mass/vol 10.1 informati 2016 6:35 ume] in on in AM Serum or source Plasma data Chloride 98 - 107 mmoL/L Normal No Dec 12 [Moles/vo informati 2016 6:35 lume] in on in AM Serum or source Plasma data Carbon 21.0 - mmoL/L Normal No Dec 12 dioxide, 32.0 informati 2016 6:35 total on in AM [Moles/vo source lume] in data Serum or Plasma Creatinin 0.55 - mg/dL Normal No Dec 12 e 1.02 informati 2016 6:35 [Mass/vol on in AM ume] in source Serum or data Plasma Creatinin 50 - 200 ML/MIN Normal No Dec 12 e renal informati 2016 6:35 clearance on in AM source predicted data by Cockcroft -Gault formula Estimated 59- ML/MIN No REFERENCE Dec 12 informati RANGE: 2017 6:35 glomerula on in >60 AM r source ML/MIN/1. filtratio data 73 SQUARE n rate METERSIf (GF this patient is -A merican, then multiply theresult by 1.210. Glucose 74 - 106 mg/dL High No Dec 12 [Mass/vol informati 2016 6:35 ume] in on in AM Serum or source Plasma data Potassium 3.5 - 5.1 mmoL/L Low No Dec 12 informati 2016 6:35 [Moles/vo on in AM lume] in source Serum or data Plasma Sodium 136 - 145 mmoL/L Normal No Dec 12 [Moles/vo informati 2017 6:35 lume] in on in AM Serum or source Plasma data CBC W Auto Differential panel in Blood Observa Value Referen Units Interpr Notes Date tion ce etation Range Basophils 0 - 0.2 K/MM3 Normal No Dec 12 informati 2016 6:35 [#/volume on in AM ] in source Blood by data Automated count Basophils 0.1 - 2.0 % Normal No Dec 12 / informati 2017 6:35 leukocyte on in AM s in source Blood by data Automated count Eosinophi 0.0 - 0.4 K/mm3 Normal No Dec 12 ls informati 2017 6:35 [#/volume on in AM ] in source Blood by data Automated count Eosinophi 0.1 - % Normal No Dec 12 ls/100 12.0 informati 2016 6:35 leukocyte on in AM s in source Blood by data Automated count Granulocy 1.8 - 7.8 K/mm3 High No Dec 12 adelso informati 2016 6:35 [#/volume on in AM ] in source Blood by data Automated count Granulocy 37.0 - % Normal No Dec 12 adelso/100 80.0 informati 2017 6:35 leukocyte on in AM s in source Blood by data Automated count Hematocri 37.0 - % Low No Dec 12 t [Volume 47.0 informati 2016 6:35 on in AM Fraction] source of Blood data Hemoglobi 12.2 - g/dL Low No Dec 12 n 16.2 informati 2016 6:35 [Mass/vol on in AM ume] in source Blood data Lymphocyt 0.7 - 4.5 K/mm3 Normal No Dec 12 es informati 2016 6:35 [#/volume on in AM ] in source Unspecifi data ed specimen by Automated count Lymphocyt 10 - 50.0 % Normal No Dec 12 es informati 2016 6:35 [#/volume on in AM ] in source Unspecifi data ed specimen by Automated count Erythrocy 27 - 31.2 pg Normal No Dec 12 te mean informati 2016 6:35 corpuscul on in AM ar source hemoglobi data n [Entitic mass] Erythrocy 31.8 - g/dl Low No Dec 12 te mean 35.4 informati 2016 6:35 corpuscul on in AM ar source hemoglobi data n concentra tion [Mass/vol ume] by Automated count Erythrocy 82.2 - fl Normal No Dec 12 te mean 97.8 informati 2016 6:35 corpuscul on in AM ar volume source [Entitic data volume] by Automated count Monocytes 0.1 - 1.0 K/mm3 Normal No Dec 12 informati 2017 6:35 [#/volume on in AM ] in source Blood by data Automated count Monocytes 1.7 - 9.3 % Normal No Dec 12 /100 informati 2016 6:35 leukocyte on in AM s in source Blood by data Automated count Platelet 7.4 - fl Low Dec 12 mean 10.4 informati 2017 6:35 volume on in AM [Entitic source volume] data in Blood by Automated count Platelets 142 - 424 K/mm3 High No Dec 12 informati 2016 6:35 [#/volume on in AM ] in source Blood data Erythrocy 4.2 - 5.4 M/mm3 Low No Dec 12 adelso informati 2016 6:35 [#/volume on in AM ] in source Amniotic data fluid Erythrocy 11.5 - % Normal Dec 12 te 17.5 informati 2016 6:35 distribut on in AM ion width source [Entitic data volume] by Automated count Leukocyte 4.8 - K/MM3 High No Dec 12 s 10.8 informati 2016 6:35 [#/volume on in AM ] in source Blood data Bacteria identified in Sputum by Culture Observa Value Referen Units Interpr Notes Date tion ce etation Range Collected by nurse? Y Hold specimen in OE? N Bacteri YEAST: No No No No Dec 11 a MIGUEL A informa informa informa informa 2016 identif tion in tion in tion in tion in 3:15 PM ied in ALBICAN source source source source Sputum S data data data data by Culture Bacteri LAB No No No No Dec 11 a WILL informa informa informa informa 2016 identif HOLD tion in tion in tion in tion in 3:15 PM ied in YEAST source source source source Sputum FOR 5 data data data data by DAYS. Culture FOR FURTHER TESTING PLEASE Bacteri CONTACT No No No No Dec 11 a THE informa informa informa informa 2017 identif LAB. tion in tion in tion in tion in 3:15 PM ied in source source source source Sputum data data data data by Culture Bacteri Yeast No No No No Dec 11 a informa informa informa informa 2017 identif tion in tion in tion in tion in 3:15 PM ied in source source source source Sputum data data data data by Culture Basic metabolic panel in Blood Observa Value Referen Units Interpr Notes Date tion ce etation Range Urea 7 - 18 mg/dL No No Dec 11 nitrogen informati informati 2016 6:30 [Mass/vol on in on in AM ume] in source source Serum or data data Plasma Calcium 8.5 - mg/dL Normal No Dec 11 [Mass/vol 10.1 informati 2017 6:30 ume] in on in AM Serum or source Plasma data Chloride 98 - 107 mmoL/L Low No Dec 11 [Moles/vo informati 2016 6:30 lume] in on in AM Serum or source Plasma data Carbon 21.0 - mmoL/L Normal No Dec 11 dioxide, 32.0 informati 2016 6:30 total on in AM [Moles/vo source lume] in data Serum or Plasma Creatinin 0.55 - mg/dL No No Dec 11 e 1.02 informati informati 2017 6:30 [Mass/vol on in on in AM ume] in source source Serum or data data Plasma Creatinin 50 - 200 ML/MIN No No Dec 11 e renal informati informati 2016 6:30 clearance on in on in AM source source predicted data data by Cockcroft -Gault formula Estimated 59- ML/MIN No REFERENCE Dec 11 informati RANGE: 2017 6:30 glomerula on in >60 AM r source ML/MIN/1. filtratio data 73 SQUARE n rate METERSIf (GF this patient is -A merican, then multiply theresult by 1.210. Glucose 74 - 106 mg/dL High No Dec 11 [Mass/vol informati 2016 6:30 ume] in on in AM Serum or source Plasma data Potassium 3.5 - 5.1 mmoL/L Low alert Dec 11 2016 6:30 [Moles/vo CRITICAL AM lume] in RESULTS Serum or Plasma RESU LTS CALLED TO: EV 12/11/16 0747 Alicia Del Valle e Sodium 136 - 145 mmoL/L Normal No Dec 11 [Moles/vo informati 2017 6:30 lume] in on in AM Serum or source Plasma data CBC W Auto Differential panel in Blood Observa Value Referen Units Interpr Notes Date tion ce etation Range Basophils 0 - 0.2 K/MM3 Normal No Dec 11 informati 2017 6:30 [#/volume on in AM ] in source Blood by data Automated count Basophils 0.1 - 2.0 % Normal No Dec 11 /100 informati 2017 6:30 leukocyte on in AM s in source Blood by data Automated count Eosinophi 0.0 - 0.4 K/mm3 Normal No Dec 11 ls informati 2017 6:30 [#/volume on in AM ] in source Blood by data Automated count Eosinophi 0.1 - % Normal No Dec 11 ls/100 12.0 informati 2017 6:30 leukocyte on in AM s in source Blood by data Automated count Granulocy 1.8 - 7.8 K/mm3 High No Dec 11 adelso informati 2016 6:30 [#/volume on in AM ] in source Blood by data Automated count Granulocy 37.0 - % Normal No Dec 11 adelso/100 80.0 informati 2017 6:30 leukocyte on in AM s in source Blood by data Automated count Hematocri 37.0 - % Low No Dec 11 t [Volume 47.0 informati 2017 6:30 on in AM Fraction] source of Blood data Hemoglobi 12.2 - g/dL Low No Dec 11 n 16.2 informati 2017 6:30 [Mass/vol on in AM ume] in source Blood data Lymphocyt 0.7 - 4.5 K/mm3 Normal No Dec 11 es informati 2016 6:30 [#/volume on in AM ] in source Unspecifi data ed specimen by Automated count Lymphocyt 10 - 50.0 % Normal No Dec 11 es informati 2016 6:30 [#/volume on in AM ] in source Unspecifi data ed specimen by Automated count Erythrocy 27 - 31.2 pg Normal No Dec 11 te mean informati 2017 6:30 corpuscul on in AM ar source hemoglobi data n [Entitic mass] Erythrocy 31.8 - g/dl Normal No Dec 11 te mean 35.4 informati 2016 6:30 corpuscul on in AM ar source hemoglobi data n concentra tion [Mass/vol ume] by Automated count Erythrocy 82.2 - fl Normal No Dec 11 te mean 97.8 informati 2017 6:30 corpuscul on in AM ar volume source [Entitic data volume] by Automated count Monocytes 0.1 - 1.0 K/mm3 High No Dec 11 informati 2017 6:30 [#/volume on in AM ] in source Blood by data Automated count Monocytes 1.7 - 9.3 % Normal No Dec 11 informati 2016 6:30 leukocyte on in AM s in source Blood by data Automated count Platelet 7.4 - fl Low No Dec 11 mean 10.4 informati 2017 6:30 volume on in AM [Entitic source volume] data in Blood by Automated count Platelets 142 - 424 K/mm3 High No Dec 11 informati 2017 6:30 [#/volume on in AM ] in source Blood data Erythrocy 4.2 - 5.4 M/mm3 Low No Dec 11 adelso informati 2017 6:30 [#/volume on in AM ] in source Amniotic data fluid Erythrocy 11.5 - % Normal No Dec 11 te 17.5 informati 2016 6:30 distribut on in AM ion width source [Entitic data volume] by Automated count Leukocyte 4.8 - K/MM3 High No Dec 11 s 10.8 informati 2017 6:30 [#/volume on in AM ] in source Blood data CBC W Auto Differential panel in Blood Observa Value Referen Units Interpr Notes Date tion ce etation Range Basophils 0 - 0.2 K/MM3 Normal No Dec 10 informati 2016 4:37 [#/volume on in PM ] in source Blood by data Automated count Basophils 0.1 - 2.0 % Normal No Dec 10 informati 2016 4:37 leukocyte on in PM s in source Blood by data Automated count Eosinophi 0.0 - 0.4 K/mm3 Normal No Dec 10 ls informati 2016 4:37 [#/volume on in PM ] in source Blood by data Automated count Eosinophi 0.1 - % Normal No Dec 10 ls/100 12.0 informati 2016 4:37 leukocyte on in PM s in source Blood by data Automated count Granulocy 1.8 - 7.8 K/mm3 High No Dec 10 adelso informati 2016 4:37 [#/volume on in PM ] in source Blood by data Automated count Granulocy 37.0 - % Normal No Dec 10 adelso/100 80.0 informati 2017 4:37 leukocyte on in PM s in source Blood by data Automated count Hematocri 37.0 - % Low No Dec 10 t [Volume 47.0 informati 2016 4:37 on in PM Fraction] source of Blood data Hemoglobi 12.2 - g/dL Low No Dec 10 n 16.2 informati 2017 4:37 [Mass/vol on in PM ume] in source Blood data Lymphocyt 0.7 - 4.5 K/mm3 Normal No Dec 10 es informati 2017 4:37 [#/volume on in PM ] in source Unspecifi data ed specimen by Automated count Lymphocyt 10 - 50.0 % Normal No Dec 10 es informati 2017 4:37 [#/volume on in PM ] in source Unspecifi data ed specimen by Automated count Erythrocy 27 - 31.2 pg Normal No Dec 10 te mean informati 2016 4:37 corpuscul on in PM ar source hemoglobi data n [Entitic mass] Erythrocy 31.8 - g/dl Low No Dec 10 te mean 35.4 informati 2017 4:37 corpuscul on in PM ar source hemoglobi data n concentra tion [Mass/vol ume] by Automated count Erythrocy 82.2 - fl Normal No Dec 10 te mean 97.8 informati 2017 4:37 corpuscul on in PM ar volume source [Entitic data volume] by Automated count Monocytes 0.1 - 1.0 K/mm3 High No Dec 10 informati 2017 4:37 [#/volume on in PM ] in source Blood by data Automated count Monocytes 1.7 - 9.3 % Normal No Dec 10 /100 informati 2017 4:37 leukocyte on in PM s in source Blood by data Automated count Platelet 7.4 - fl Low No Dec 10 mean 10.4 informati 2017 4:37 volume on in PM [Entitic source volume] data in Blood by Automated count Platelets 142 - 424 K/mm3 High No Dec 10 informati 2017 4:37 [#/volume on in PM ] in source Blood data Erythrocy 4.2 - 5.4 M/mm3 Low No Dec 10 adelso informati 2017 4:37 [#/volume on in PM ] in source Amniotic data fluid Erythrocy 11.5 - % Normal No Dec 10 te 17.5 informati 2017 4:37 distribut on in PM ion width source [Entitic data volume] by Automated count Leukocyte 4.8 - K/MM3 High No Dec 10 s 10.8 alert informati 2017 4:37 [#/volume on in PM ] in source Blood data Differential panel, method unspecified - Observa Value Referen Units Interpr Notes Date tion ce etation Range Neutrophi 0 - 8 % Normal No Dec 10 ls.band informati 2017 4:37 form/100 on in PM leukocyte source s in data Blood by Automated count Hypochr 1+ No No No No Dec 10 omia informa informa informa informa 2016 [Presen tion in tion in tion in tion in 4:37 PM ce] in source source source source Blood data data data data LYMPH 18 10 - 50 % Normal No Dec 102016 tion in 4:37 PM source data Metamyelo 0 - 1 % High No Dec 10 cytes/100 informati 2017 4:37 on in PM leukocyte source s in data Blood by Manual count Monocytes 2 - 9 % Normal No Dec 10 / informati 2016 4:37 leukocyte on in PM s in source Blood by data Automated count Platele MARKED No No No No Dec 10 ts INCREAS informa informa informa informa 2016 [Presen E tion in tion in tion in tion in 4:37 PM ce] in source source source source Blood data data data data by Light microsc opy Neutrophi 42 - 76 % Normal No Dec 10 ls informati 2017 4:37 [#/volume on in PM ] in source Blood by data Automated count Cells No #CELLS No No Dec 10 Counted informati informati informati 2016 4:37 Total [#] on in on in on in PM in Blood source source source data data data Lactate [Moles/volume] in Blood Observa Value Referen Units Interpr Notes Date tion ce etation Range Lactate 0.4 - 2.0 mmol/L Normal No Dec 10 [Moles/vo informati 2016 4:37 lume] in on in PM Blood source data Comprehensive metabolic 2000 panel in Serum or Plasma Observa Value Referen Units Interpr Notes Date tion ce etation Range Albumin/G 1.1 - 1.8 No Low No Dec 10 lobulin informati informati 2016 4:37 [Mass on in on in PM ratio] in source source Serum or data data Plasma Albumin 3.4 - 5.0 gm/dL Low No Dec 10 [Mass/vol informati 2016 4:37 ume] in on in PM Serum or source Plasma data Alkaline 46 - 116 U/L High No Dec 10 phosphata informati 2016 4:37 se on in PM [Enzymati source c data activity/ volume] in Serum or Plasma Bilirubin 0.2 - 1.0 mg/dL Normal No Dec 10 .total informati 2016 4:37 [Mass/vol on in PM ume] in source Serum or data Plasma Urea 7 - 18 mg/dL Normal No Dec 10 nitrogen informati 2016 4:37 [Mass/vol on in PM ume] in source Serum or data Plasma Calcium 8.5 - mg/dL Normal No Dec 10 [Mass/vol 10.1 informati 2016 4:37 ume] in on in PM Serum or source Plasma data Chloride 98 - 107 mmoL/L Low No Dec 10 [Moles/vo informati 2016 4:37 lume] in on in PM Serum or source Plasma data Carbon 21.0 - mmoL/L Normal No Dec 10 dioxide, 32.0 informati 2016 4:37 total on in PM [Moles/vo source lume] in data Serum or Plasma Creatinin 0.55 - mg/dL High No Dec 10 e 1.02 informati 2016 4:37 [Mass/vol on in PM ume] in source Serum or data Plasma Creatinin 50 - 200 ML/MIN Normal No Dec 10 e renal informati 2016 4:37 clearance on in PM source predicted data by Cockcroft -Gault formula Estimated 59- ML/MIN Low REFERENCE Dec 10 RANGE: 2016 4:37 glomerula >60 PM r ML/MIN/1. filtratio 73 SQUARE n rate METERSIf (GF this patient is -A merican, then multiply theresult by 1.210. Globulin 1.3 - 3.2 gm/dL High No Dec 10 [Mass/vol informati 2016 4:37 ume] in on in PM Serum source data Glucose 74 - 106 mg/dL Normal No Dec 10 [Mass/vol informati 2016 4:37 ume] in on in PM Serum or source Plasma data Potassium 3.5 - 5.1 mmoL/L Low alert Dec 10 2016 4:37 [Moles/vo CRITICAL PM lume] in RESULTS Serum or Plasma RESU LTS CALLED TO: [facility] 12/10/16 1714 AviOtis manuel Sodium 136 - 145 mmoL/L Low No Dec 10 [Moles/vo informati 2016 4:37 lume] in on in PM Serum or source Plasma data Aspartate 15 - 37 U/L Normal No Dec 10 informati 2016 4:37 aminotran on in PM sferase source [Enzymati data c activity/ volume] in Serum or Plasma Alanine 12 - 78 U/L Normal No Dec 10 aminotran informati 2016 4:37 sferase on in PM [Enzymati source c data activity/ volume] in Serum or Plasma Protein 6.4 - 8.2 gm/dL High No Dec 10 [Mass/vol informati 2016 4:37 ume] in on in PM Serum or source Plasma data Amylase [Enzymatic activity/volume] in Serum or Plasma Observa Value Referen Units Interpr Notes Date tion ce etation Range Amylase 25 - 115 U/L Normal No Oct 11 [Enzymati informati 2016 7:07 c on in PM activity/ source volume] data in Serum or Plasma Comprehensive metabolic 2000 panel in Serum or Plasma Observa Value Referen Units Interpr Notes Date tion ce etation Range Albumin/G 1.1 - 1.8 No No No Oct 11 lobulin informati informati informati 2016 7:07 [Mass on in on in on in PM ratio] in source source source Serum or data data data Plasma Albumin 3.4 - 5.0 gm/dL Normal No Oct 11 [Mass/vol informati 2016 7:07 ume] in on in PM Serum or source Plasma data Alkaline 46 - 116 U/L High No Oct 11 phosphata informati 2016 7:07 se on in PM [Enzymati source c data activity/ volume] in Serum or Plasma Bilirubin 0.2 - 1.0 mg/dL Normal No Oct 11 .total informati 2016 7:07 [Mass/vol on in PM ume] in source Serum or data Plasma Urea 7 - 18 mg/dL Normal No Oct 11 nitrogen informati 2016 7:07 [Mass/vol on in PM ume] in source Serum or data Plasma Calcium 8.5 - mg/dL Normal No Oct 11 [Mass/vol 10.1 informati 2016 7:07 ume] in on in PM Serum or source Plasma data Chloride 98 - 107 mmoL/L Normal No Oct 11 [Moles/vo informati 2016 7:07 lume] in on in PM Serum or source Plasma data Carbon 21.0 - mmoL/L Normal No Oct 11 dioxide, 32.0 informati 2016 7:07 total on in PM [Moles/vo source lume] in data Serum or Plasma Creatinin 0.55 - mg/dL No No Oct 11 e 1.02 informati informati 2016 7:07 [Mass/vol on in on in PM ume] in source source Serum or data data Plasma Creatinin 50 - 200 ML/MIN No No Oct 11 e renal informati informati 2016 7:07 clearance on in on in PM source source predicted data data by Cockcroft -Gault formula Estimated 59- ML/MIN No REFERENCE Oct 11 informati RANGE: 2017 7:07 glomerula on in >60 PM r source ML/MIN/1. filtratio data 73 SQUARE n rate METERSIf (GF this patient is -A merican, then multiply theresult by 1.210. Globulin 1.3 - 3.2 gm/dL High No Oct 11 [Mass/vol informati 2016 7:07 ume] in on in PM Serum source data Glucose 74 - 106 mg/dL Normal No Oct 11 [Mass/vol informati 2016 7:07 ume] in on in PM Serum or source Plasma data Potassium 3.5 - 5.1 mmoL/L Low No Oct 11 inform2016 7:07 [Moles/vo on in PM lume] in source Serum or data Plasma Sodium 136 - 145 mmoL/L Normal No Oct 11 [Moles/vo informati 2016 7:07 lume] in on in PM Serum or source Plasma data Aspartate 15 - 37 U/L High No Oct 11 informati 2016 7:07 aminotran on in PM sferase source [Enzymati data c activity/ volume] in Serum or Plasma Alanine 12 - 78 U/L High No Oct 11 aminotran informati 2016 7:07 sferase on in PM [Enzymati source c data activity/ volume] in Serum or Plasma Protein 6.4 - 8.2 gm/dL Normal No Oct 11 [Mass/vol informati 2016 7:07 ume] in on in PM Serum or source Plasma data Lipase [Enzymatic activity/volume] in Serum or Plasma Observa Value Referen Units Interpr Notes Date tion ce etation Range Lipase 73 - 393 U/L Normal No Oct 11 [Enzymati informati 2016 7:07 c on in PM activity/ source volume] data in Serum or Plasma CBC W Auto Differential panel in Blood Observa Value Referen Units Interpr Notes Date ti ce etation Range Basophils 0 - 0.2 K/MM3 Normal No Oct 11 informati 2016 7:07 [#/volume on in PM ] in source Blood by data Automated count Basophils 0.1 - 2.0 % Normal No Oct 11 /100 informati 2017 7:07 leukocyte on in PM s in source Blood by data Automated count Eosinophi 0.0 - 0.4 K/mm3 Normal No Oct 11 ls informati 2016 7:07 [#/volume on in PM ] in source Blood by data Automated count Eosinophi 0.1 - % Normal No Oct 11 ls/100 12.0 informati 2016 7:07 leukocyte on in PM s in source Blood by data Automated count Granulocy 1.8 - 7.8 K/mm3 Normal No Oct 11 adelso informati 2016 7:07 [#/volume on in PM ] in source Blood by data Automated count Granulocy 37.0 - % Normal No Oct 11 adelso/100 80.0 informati 2016 7:07 leukocyte on in PM s in source Blood by data Automated count Hematocri 37.0 - % Normal No Oct 11 t [Volume 47.0 informati 2016 7:07 on in PM Fraction] source of Blood data Hemoglobi 12.2 - g/dL Normal No Oct 11 n 16.2 informati 2016 7:07 [Mass/vol on in PM ume] in source Blood data Lymphocyt 0.7 - 4.5 K/mm3 Normal No Oct 11 es informati 2016 7:07 [#/volume on in PM ] in source Unspecifi data ed specimen by Automated count Lymphocyt 10 - 50.0 % Normal No Oct 11 es informati 2016 7:07 [#/volume on in PM ] in source Unspecifi data ed specimen by Automated count Erythrocy 27 - 31.2 pg Normal No Oct 11 te mean informati 2016 7:07 corpuscul on in PM ar source hemoglobi data n [Entitic mass] Erythrocy 31.8 - g/dl Low No Oct 11 te mean 35.4 informati 2016 7:07 corpuscul on in PM ar source hemoglobi data n concentra tion [Mass/vol ume] by Automated count Erythrocy 82.2 - fl Normal No Oct 11 te mean 97.8 informati 2016 7:07 corpuscul on in PM ar volume source [Entitic data volume] by Automated count Monocytes 0.1 - 1.0 K/mm3 Normal No Oct 11 inform2016 7:07 [#/volume on in PM ] in source Blood by data Automated count Monocytes 1.7 - 9.3 % Normal No Oct 11 /100 informati 2016 7:07 leukocyte on in PM s in source Blood by data Automated count Platelet 7.4 - fl Normal No Oct 11 mean 10.4 informati 2016 7:07 volume on in PM [Entitic source volume] data in Blood by Automated count Platelets 142 - 424 K/mm3 Normal No Oct 11 inform2016 7:07 [#/volume on in PM ] in source Blood data Erythrocy 4.2 - 5.4 M/mm3 Normal No Oct 11 adelso inform2016 7:07 [#/volume on in PM ] in source Amniotic data fluid Erythrocy 11.5 - % Normal No Oct 11 te 17.5 informati 2016 7:07 distribut on in PM ion width source [Entitic data volume] by Automated count Leukocyte 4.8 - K/MM3 High No Oct 11 s 10.8 informati 2016 7:07 [#/volume on in PM ] in source Blood data Protein C actual/normal in Platelet poor plasma by Coagulation assay Observa Value Referen Units Interpr Notes ti etation Range Protein C 73 - 180 % High Performed Sep 29 at: BN 2017 actual/no - [facility] 12:40 PM rmal in Platelet [place] poor [id number] plasma by Jamey Salas Coaguljeanne Roberson on assay n, [place] [id number] Physical Aerodynamicist: Maynor Herrera MD, Phone: [phone] Erythrocyte sedimentation rate by Westergren method Observa Value Referen Units Interpr Notes tion ce etation Range Erythrocy 0 - 30 mm/hr Normal No Sep 29 te 2016 sedimenta on in 12:40 PM tion rate source by data Westergre n method CBC W Auto Differential panel in Blood Observa Value Referen Units Interpr Notes Date tion ce etation Range Basophils 0 - 0.2 K/MM3 Normal No Manny 1 informati 2016 8:00 [#/volume on in AM ] in source Blood by data Automated count Basophils 0.1 - 2.0 % Normal No Manny 1 /100 informati 2016 8:00 leukocyte on in AM s in source Blood by data Automated count Eosinophi 0.0 - 0.4 K/mm3 Normal No Manny 1 ls informati 2016 8:00 [#/volume on in AM ] in source Blood by data Automated count Eosinophi 0.1 - % Normal No Manny 1 ls/100 12.0 informati 2016 8:00 leukocyte on in AM s in source Blood by data Automated count Granulocy 1.8 - 7.8 K/mm3 Normal No Manny 1 adelso informati 2016 8:00 [#/volume on in AM ] in source Blood by data Automated count Granulocy 37.0 - % Normal No Manny 1 adelso/100 80.0 informati 2016 8:00 leukocyte on in AM s in source Blood by data Automated count Hematocri 37.0 - % Normal No Sep 16 t [Volume 47.0 informati 2016 8:00 on in AM Fraction] source of Blood data Hemoglobi 12.2 - g/dL No No Manny 1 n 16.2 informati informati 2016 8:00 [Mass/vol on in on in AM ume] in source source Blood data data Lymphocyt 0.7 - 4.5 K/mm3 Normal No Sep 16 es informati 2016 8:00 [#/volume on in AM ] in source Unspecifi data ed specimen by Automated count Lymphocyt 10 - 50.0 % Normal No Sep 16 es informati 2016 8:00 [#/volume on in AM ] in source Unspecifi data ed specimen by Automated count Erythrocy 27 - 31.2 pg Normal No Sep 16 te mean informati 2016 8:00 corpuscul on in AM ar source hemoglobi data n [Entitic mass] Erythrocy 31.8 - g/dl Normal No Sep 16 te mean 35.4 informati 2016 8:00 corpuscul on in AM ar source hemoglobi data n concentra tion [Mass/vol ume] by Automated count Erythrocy 82.2 - fl Normal No Manny 1 te mean 97.8 informati 2016 8:00 corpuscul on in AM ar volume source [Entitic data volume] by Automated count Monocytes 0.1 - 1.0 K/mm3 Normal No Manny 1 informati 2017 8:00 [#/volume on in AM ] in source Blood by data Automated count Monocytes 1.7 - 9.3 % Normal No Manny 1 /100 informati 2017 8:00 leukocyte on in AM s in source Blood by data Automated count Platelet 7.4 - fl Low No Manny 1 mean 10.4 informati 2017 8:00 volume on in AM [Entitic source volume] data in Blood by Automated count Platelets 142 - 424 K/mm3 No No Manny 1 informati informati 2017 8:00 [#/volume on in on in AM ] in source source Blood data data Erythrocy 4.2 - 5.4 M/mm3 Normal No Manny 1 adelso informati 2017 8:00 [#/volume on in AM ] in source Amniotic data fluid Erythrocy 11.5 - % Normal No Manny 1 te 17.5 informati 2017 8:00 distribut on in AM ion width source [Entitic data volume] by Automated count Leukocyte 4.8 - K/MM3 Normal No Manny 1 s 10.8 informati 2016 8:00 [#/volume on in AM ] in source Blood data Basic metabolic panel in Blood Observa Value Referen Units Interpr Notes Date tion ce etation Range Urea 7 - 18 mg/dL Normal No Manny 1 nitrogen informati 2017 8:00 [Mass/vol on in AM ume] in source Serum or data Plasma Calcium 8.5 - mg/dL Normal No Manny 1 [Mass/vol 10.1 informati 2017 8:00 ume] in on in AM Serum or source Plasma data Chloride 98 - 107 mmoL/L Normal No Manny 1 [Moles/vo informati 2017 8:00 lume] in on in AM Serum or source Plasma data Carbon 21.0 - mmoL/L Normal No Manny 1 dioxide, 32.0 informati 2017 8:00 total on in AM [Moles/vo source lume] in data Serum or Plasma Creatinin 0.55 - mg/dL Normal No Manny 1 e 1.02 informati 2017 8:00 [Mass/vol on in AM ume] in source Serum or data Plasma Estimated 59- ML/MIN No REFERENCE Manny 1 informati RANGE: 2017 8:00 glomerula on in >60 AM r source ML/MIN/1. filtratio data 73 SQUARE n rate METERSIf (GF this patient is -A merican, then multiply theresult by 1.210. Glucose 74 - 106 mg/dL Normal No Manny 1 [Mass/vol informati 2017 8:00 ume] in on in AM Serum or source Plasma data Potassium 3.5 - 5.1 mmoL/L Normal No Manny 1 informati 2017 8:00 [Moles/vo on in AM lume] in source Serum or data Plasma Sodium 136 - 145 mmoL/L Normal No Manny 1 [Moles/vo informati 2017 8:00 lume] in on in AM Serum or source Plasma data Basic metabolic panel in Blood Observa Value Referen Units Interpr Notes Date tion ce etation Range Urea 7 - 18 mg/dL Normal No Manny 1 nitrogen informati 2017 8:00 [Mass/vol on in AM ume] in source Serum or data Plasma Calcium 8.5 - mg/dL Normal No Manny 1 [Mass/vol 10.1 informati 2017 8:00 ume] in on in AM Serum or source Plasma data Chloride 98 - 107 mmoL/L Normal No Manny 1 [Moles/vo informati 2017 8:00 lume] in on in AM Serum or source Plasma data Carbon 21.0 - mmoL/L Normal No Manny 1 dioxide, 32.0 informati 2017 8:00 total on in AM [Moles/vo source lume] in data Serum or Plasma Creatinin 0.55 - mg/dL Normal No Manny 1 e 1.02 informati 2017 8:00 [Mass/vol on in AM ume] in source Serum or data Plasma Estimated 59- ML/MIN No REFERENCE Manny 1 informati RANGE: 2017 8:00 glomerula on in >60 AM r source ML/MIN/1. filtratio data 73 SQUARE n rate METERSIf (GF this patient is -A merican, then multiply theresult by 1.210. Glucose 74 - 106 mg/dL Normal No Manny 1 [Mass/vol informati 2017 8:00 ume] in on in AM Serum or source Plasma data Potassium 3.5 - 5.1 mmoL/L Normal No Manny 1 informati 2017 8:00 [Moles/vo on in AM lume] in source Serum or data Plasma Sodium 136 - 145 mmoL/L Normal No Manny 1 [Moles/vo informati 2017 8:00 lume] in on in AM Serum or source Plasma data ST STRESS TEST EXERCISE Observa Value Referen Units Interpr Notes Date ce etation Range Exercis No No No No Aug 09 e ECG informa informa informa informa 2017 Report\ tion in on in in in 9:35 AM .br\St. source source source source data data data data [facility]\ .br\Int erpreti ve Stateme nts\.br \Type of Test: Exercis e\.br\R gene for Exam: chest pain: SOB\.br \Restin g HR: 87 Peak HR: 152\.br \Restin g B/P 117/90 Peak B/P 155/80\ .br\1. METS achieve d 5.0\.br \2. WALKED _4:30__ MINUTES ON FULL MORE PROTOCO L\.br\3 . Target HR achieve d _x__ Yes ___ NO____H EART RATE\.b r\4. Termina tion of test due to fatigue \.br\5. Symptom s: increas ed chest pain while walking .\.br\6 . Imaging pending ____no __x__ yes Nuclear __x_ Echo ____\.b r\7. Resting EKG:\.b r\8. Arrhyth mias:\. br\9. Conclus ion:\.b r\UPSLO PING ST CHANGES WITH EXERCIS E\.br\N UCLEAR PENDING \.br\El ectroni joaquin Signed On 08-10-19 11:29:3 2 EDT by Rhina Lizama MD NM MYOCARDIAL PERFUSION SPECT STRESS AND REST Observa Value Referen Units Interpr Notes Date etation Range This No No No No Aug 09 patient informa informa informa informa 2017 tion in in on in in 7:55 AM receive source source source source d an data data data data examina tion at the [facility] are Vascula r Laborat ory.\.b r\The complet e report can be found in the [facility] ([facility]) Electro gama Medical Record of the patient . EK EKG 12 LEAD Observa Value Referen Units Interpr Notes Date ce etation Range Station No No No No Aug 09 teddy ECG informa informa informa informa 2016 tion in tion in tion in tion in 7:31 AM Study\. source source source source br\St. data data data data [facility]\ .br\Int erpreti ve Stateme nts\.br \SINUS RHYTHM\ .br\ST DEVIATI ON AND MODERAT E T-WAVE ABNORMA LITY, CONSIDE R ANTEROL ATERAL ISCHEMI A\.br\F ollow up tracing suggest ed\.br\ Electro nically Signed On 08-10-19 17 15:37:4 9 EDT by Tanner Tobias MD XR CHEST PA AND LATERAL Observa Value Referen Units Interpr Notes Date ce etation Range \.br\XR No No No No Aug 08 CHEST informa informa informa informa 2017 PA AND tion in tion in tion in tion in 9:44 PM LATERAL source source source source data data data data 08/09/19 17 9:44 PM\.br\ \.br\Cl inical: -CHEST PAIN\.b r\-SHOR TNESS OF BREATH\ .br\-AB DOMINAL PAIN\.b r\\.br\ COMPARI SONS: 017.\.b r\\.br\ FINDING S:\.br\ \.br\Th e lungs are clear. The costoph renic sulci are sharp. The heart and\.br \medias tinal\. br\cont ours are normal. There are no acute osseous finding s in the chest.\ .br\\.b r\IMPRE SSION:\ .br\\.b r\There is no acute radiogr aphic cardiop ulmonar y disease .\.br\ Auto Diff Observa Value Referen Units Interpr Notes Date ti ce etation Range Neutrop 51.8 No % No No Aug 08 hils informa informa informa 2016 [#/volu tion in tion in tion in 9:36 PM me] in source source source Blood data data data by Automat ed count Lymphoc 38.2 No % No No Aug 08 ytes informa informa informa 2016 [#/volu tion in tion in tion in 9:36 PM me] in source source source Blood data data data by Automat ed count Monocyt 6.5 No % No No Apr 23 es informa informa informa 2017 [#/volu tion in tion in tion in 9:36 PM me] in source source source Blood data data data by Automat ed count Eos 2.6 No % No No Apr 23 Percent informa informa informa 2017 tion in tion in tion in 9:36 PM source source source data data data Baso 0.9 No % No No Apr 23 Percent informa informa informa 2017 tion in tion in tion in 9:36 PM source source source data data data Neut# 5.3 1.8 - x10(3)/ No No Apr 23 7.7 mcL informa informa 2017 tion in tion in 9:36 PM source source data data Lymph# 3.9 0.6 - x10(3)/ No No Apr 23 4.8 mcL informa informa 2017 tion in tion in 9:36 PM source source data data [place]# 0.7 0.0 - x10(3)/ No No Apr 23 1.3 mcL informa informa 2017 tion in tion in 9:36 PM source source data data Eos# 0.3 0.0 - x10(3)/ No No Apr 23 0.5 mcL informa informa 2017 tion in tion in 9:36 PM source source data data Baso# 0.1 0.0 - x10(3)/ No No Apr 23 0.2 mcL informa informa 2017 tion in tion in 9:36 PM source source data data CBC Observa Value Referen Units Interpr Notes Date tion ce etation Range LEUKOCY 10.3 4.0 - x10(3)/ No No Apr 23 ADELSO 11.0 mcL informa informa 2017 tion in tion in 9:36 PM source source data data Erythro 4.66 3.80 - x10(6)/ No No Apr 23 cytes 5.10 mcL informa informa 2016 [#/volu tion in tion in 9:36 PM me] in source source Blood data data by Automat ed count Hemoglo 13.6 12.0 - gm/dL No No Aug 08 bin 15.6 informa informa 2016 [Mass/v tion in tion in 9:36 PM olume] source source in data data Blood Hematoc 41.3 35.7 - % No No Aug 08 rit 45.9 informa informa 2016 [Volume tion in tion in 9:36 PM source source Fractio data data n] of Blood by Automat ed count Erythro 88.6 82.5 - fL No No Aug 08 cyte 99.8 informa informa 2017 mean tion in tion in 9:36 PM corpusc source source ular data data volume [Entiti c volume] by Automat ed count Erythro 29.2 27.0 - pg No No Aug 08 cyte 34.3 informa informa 2017 mean tion in tion in 9:36 PM corpusc source source ular data data hemoglo bin [Entiti c mass] by Automat ed count Erythro 32.9 32.1 - gm/dL No No Aug 08 cyte 35.3 informa informa 2017 mean tion in tion in 9:36 PM corpusc source source ular data data hemoglo bin concent ration [Mass/v olume] by Automat ed count Erythro 13.5 11.5 - % No No Aug 08 cyte 15.0 informa informa 2017 distrib tion in tion in 9:36 PM ution source source width data data [Ratio] by Automat ed count Platele 286 144 - x10(3)/ No No Aug 08 ts 423 mcL informa informa 2016 [#/volu tion in tion in 9:36 PM me] in source source Blood data data by Automat ed count MPV 8.4 6.8 - fL No No Aug 08 10.8 informa informa 2016 tion in tion in 9:36 PM source source data data EK EKG 12 LEAD Observa Value Referen Units Interpr Notes Date tion ce etation Range Station No No No No Aug 08 teddy ECG informa informa informa informa 2017 tion in tion in tion in tion in 9:17 PM Study\. source source source source br\St. data data data data [facility]\ .br\Int erpreti ve Stateme nts\.br \SINUS TACHYCA RDIA\.b r\POSSI BLE LEFT ATRIAL ENLARGE MENT\.b r\NONSP ECIFIC ST & T-WAVE ABNORMA LITY\.b r\Elect ronical ly Signed On 08-10-19 17 15:39:0 7 EDT by Tanner Tobias MD MRI CERVICAL SPINE WO CONTRAST Observa Value Referen Units Interpr Notes Date tion ce etation Range \.br\MR No No No No Jul 30 I informa informa informa informa 2016 CERVICA tion in tion in tion in tion in 3:53 PM L SPINE source source source source WO data data data data CONTRAS T 07/31/19 17 3:53 PM\.br\ \.br\HI STORY: M54.2-C ervical don-ICD -10-CM. \.br\\. br\\.br \\.br\C OMPARE: Plain radiogr aphs July 21, 2016\.b r\\.br\ FINDING S:\.br\ \.br\Ma rrow signal normal and the osseous structu res. Cerebel lar tonsils \.br\no rmally\ .br\pos itioned . Cord signal and caliber normal\ .br\\.b r\C2-3 and C3-4 are normal\ .br\\.b r\At C4-5 there is a broad-b ased protrus ion with associa tash spur which\. br\effa anabel the\.br \anteri or CSF but does not create cord shayne cristobal. There is mild facet\. br\arth ropathy LEFT greater than RIGHT with mild to moderat e LEFT C5 and\.br \minima l\.br\R IGHT C5 foramin al narrowi ng\.br\ \.br\At C5-6 there is a RIGHT paracen tral protrus ion largely contain ed within\ .br\the \.br\an terior CSF. No cord shayne cristobal. Moderat e RIGHT and mild LEFT foramin al\.br\ narrowi ng seen\.b r\\.br\ At C6-7 there is mild disc bulge without central stenosi s or foramin al\.br\ narrowi ng\.br\ \.br\C7 -T1 is normal\ .br\\.b r\IMPRE SSION:\ .br\\.b r\Broad -based protrus ion C4-5 and RIGHT paracen tral protrus ion C5-6. Moderat e\.br\L EFT\.br \C5 and moderat e RIGHT C6 foramin al narrowi ng. Detaile d descrip tion of each\.b r\anato mini level is given above\. br\ XR CERVICAL SPINE AP LATERAL AND ODONTOID Observa Value Referen Units Interpr Notes Date tion ce etation Range \.br\XR No No No No Apr 5 informa informa informa informa 2017 CERVICA tion in tion in tion in tion in 6:14 PM L SPINE source source source source AP data data data data LATERAL AND ODONTOI D 7 6:14 PM\.br\ \.br\HI STORY: M54.2-C ervical don-ICD -10-CM\ .br\G89 .29-Oth er chronic pain-IC D-10-CM .\.br\\ .br\\.b r\\.br\ FINDING S:\.br\ \.br\Th ere is mild spondyl itic change through out the cervica l spine. No acute\. br\frac tures. Mild uncover tebral spurrin g in the mid cervica l region LEFT\.b r\great er\.br\ than RIGHT present \.br\\. br\IMPR ESSION: \.br\\. br\Mild spondyl itic change and uncover tebral spurrin g. If there is strong\ .br\con cern\.b r\for radicul opathy or myelopa thy MRI study of choice\ .br\ Uric Acid Observa Value Referen Units Interpr Notes Date tion ce etation Range Urate 5.3 2.4 - mg/dL No No Jun 8 [Mass/v 5.7 informa informa 2017 olume] tion in tion in 9:58 PM in source source Serum data data or Plasma Mg Observa Value Referen Units Interpr Notes Date ti ce etation Range Magnesi 1.9 1.6 - mg/dL No No Mar 8 um 2.4 informa informa 2016 [Moles/ tion in tion in 9:58 PM volume] source source in data data Serum or Plasma CK Observa Value Referen Units Interpr Notes Date ti ce etation Range Creatin 174 26 - IU/L No No Jun 8 e 192 informa informa 2017 kinase tion in tion in 9:58 PM [Enzyma source source tic data data activit y/volum e] in Serum or Plasma XR CHEST PA AND LATERAL Observa Value Referen Units Interpr Notes Date ti ce etation Range PA and No No No No Jun 10 lateral informa informa informa informa 2017 chest tion in tion in tion in tion in 8:43 PM dated source source source source 06/10/19 data data data data 17\.br\ \.br\CO MPARISO N: 07/05/19 16\.br\ \.br\HI STORY: Shortne ss of breath, chest pain\.b r\\.br\ FINDING S:\.br\ \.br\He art size and mediast inal contour s are not signifi cantly changed . Lung\.b r\volum es\.br\ are mildly lower. There are mild linear opaciti es in the right lung base on\.br\ the\.br \fronta l view which favor atelect asis. No other new conflue nt airspac e\.br\o pacity or\.br\ signifi cant change is identif ied. No pneumot horax or pleural effusio n is\.br\ seen.\. br\Ther e are multipl e levels of hypertr ophic endplat e change in the mid and\.br \lower\ .br\tho racic spine.\ .br\\.b r\IMPRE SSION:\ .br\\.b r\1. Mild right basilar linear opaciti es favor atelect asis.\. br\\.br \2. No other acute abnorma lity is identif ied in the chest.\ .br\ EK EKG 12 LEAD Observa Value Referen Units Interpr Notes Date ti ce etation Range Station No No No No Jun 10 teddy ECG informa informa informa informa 2017 tion in tion in tion in tion in 8:35 PM Study\. source source source source br\St. data data data data Elizabe th [employer] d\.br\I nterpre tive Stateme nts\.br \SINUS RHYTHM\ .br\NON SPECIFI C ST & T-WAVE ABNORMA LITY\.b r\more pronoun sonia than prior tracing \.br\El ectroni joaquin Signed On 06-11-19 7:22:15 EST by Frankie Red MD UA Observa Value Referen Units Interpr Notes Date tion ce etation Range UA Yellow No No No No Feb 23 Color informa informa informa informa 2017 tion in tion in tion in tion in 8:49 PM source source source source data data data data UA Clear Clear No No No Feb 23 Appear informa informa informa 2017 tion in tion in tion in 8:49 PM source source source data data data UA Negativ Negativ No No No Feb 23 Glucose e e informa informa informa 2017 tion in tion in tion in 8:49 PM source source source data data data UA Negativ Negativ No No No Feb 23 Ketones e e informa informa informa 2017 tion in tion in tion in 8:49 PM source source source data data data UA Small Negativ No Abnorma No Feb 23 Blood e informa l informa 2017 tion in tion in 8:49 PM source source data data UA pH 6.0 4.8 - No No Referen Feb 23 8.0 informa informa ce 2016 tion in tion in range 8:49 PM source source valid data data for random specime ns only. UA Negativ Negativ No No No Feb 23 Protein e e informa informa informa 2017 tion in tion in tion in 8:49 PM source source source data data data UA Normal <=1 No No No Feb 23 Urobili mg/dl informa informa informa 2017 nogen tion in tion in tion in 8:49 PM source source source data data data UA Negativ Negativ No No No Feb 23 Nitrite e e informa informa informa 2017 tion in tion in tion in 8:49 PM source source source data data data UA Leuk Small Negativ No Abnorma No Feb 23 Est e informa l informa 2017 tion in tion in 8:49 PM source source data data UA Spec 1.014 1.001 - No No Referen Feb 23 Grav 1.035 informa informa ce 2017 tion in tion in range 8:49 PM source source valid data data for random specime ns only. UA WBC 9 0 - 4 /HPF High No Jun 10 informa 2017 tion in 8:49 PM source data UA RBC 2 0 - 3 /HPF No No Jun 10 informa informa 2017 tion in tion in 8:49 PM source source data data UA 1+ No No No No Jun 10 Squam informa informa informa informa 2017 Epi tion in tion in tion in tion in 8:49 PM source source source source data data data data UA 1+ No No Abnorma No Jun 10 Bacteri informa informa l informa 2017 a tion in tion in tion in 8:49 PM source source source data data data TSH Reflex Observa Value Referen Units Interpr Notes Date tion ce etation Range Thyrotr 1.880 0.270 - mcIU/mL No No Jun 10 opin 4.200 informa informa 2016 [Units/ tion in tion in 8:52 PM volume] source source in data data Serum or Plasma Mg Observa Value Referen Units Interpr Notes Date tion ce etation Range Magnesi 1.7 1.6 - mg/dL No No Jun 10 um 2.4 informa informa 2016 [Moles/ tion in tion in 8:48 PM volume] source source in data data Serum or Plasma NT Pro-BNP Observa Value Referen Units Interpr Notes Date tion ce etation Range NT 86 <=174 pg/mL No An NT Jun 10 Pro-BNP informa pro-BNP 2016 tion in level 8:28 PM source less data than 300 pg/mL in any patient , regardl ess of age,\.b r\Effec tively rules out acute CHF with a 99% negativ e predict jhoana value. Lipase Observa Value Referen Units Interpr Notes Date tion ce etation Range Lipase 42 13 - 60 IU/L No No Jun 10 Lvl informa informa 2017 tion in tion in 8:19 PM source source data data Auto Diff Observa Value Referen Units Interpr Notes Date tion ce etation Range Neutrop 59.4 No % No No Jun 10 hils informa informa informa 2017 [#/volu tion in tion in tion in 8:13 PM me] in source source source Blood data data data by Automat ed count Lymphoc 31.3 No % No No Feb 23 ytes informa informa informa 2017 [#/volu tion in tion in tion in 8:13 PM me] in source source source Blood data data data by Automat ed count Monocyt 6.9 No % No No Feb 23 es informa informa informa 2017 [#/volu tion in tion in tion in 8:13 PM me] in source source source Blood data data data by Automat ed count Eos 1.9 No % No No Feb 23 Percent informa informa informa 2017 tion in tion in tion in 8:13 PM source source source data data data Baso 0.5 No % No No Feb 23 Percent informa informa informa 2017 tion in tion in tion in 8:13 PM source source source data data data Neut# 5.6 1.8 - x10(3)/ No No Feb 23 7.7 mcL informa informa 2017 tion in tion in 8:13 PM source source data data Lymph# 3.0 0.6 - x10(3)/ No No Feb 23 4.8 mcL informa informa 2017 tion in tion in 8:13 PM source source data data [place]# 0.7 0.0 - x10(3)/ No No Feb 23 1.3 mcL informa informa 2017 tion in tion in 8:13 PM source source data data Eos# 0.2 0.0 - x10(3)/ No No Feb 23 0.5 mcL informa informa 2017 tion in tion in 8:13 PM source source data data Baso# 0.0 0.0 - x10(3)/ No No Feb 23 0.2 mcL informa informa 2017 tion in tion in 8:13 PM source source data data CBC Observa Value Referen Units Interpr Notes Date tion ce etation Range LEUKOCY 9.5 4.0 - x10(3)/ No No Feb 23 ADELSO 11.0 mcL informa informa 2017 tion in tion in 8:13 PM source source data data Erythro 4.25 3.80 - x10(6)/ No No Jun 10 cytes 5.10 mcL informa informa 2017 [#/volu tion in tion in 8:13 PM me] in source source Blood data data by Automat ed count Hemoglo 12.6 12.0 - gm/dL No Jun 10 bin 15.6 informa informa 2017 [Mass/v tion in tion in 8:13 PM olume] source source in data data Blood Hematoc 37.6 35.7 - % No No Jun 10 rit 45.9 informa informa 2017 [Volume tion in tion in 8:13 PM source source Fractio data data n] of Blood by Automat ed count Erythro 88.6 82.5 - fL No Jun 10 cyte 99.8 informa informa 2017 mean tion in tion in 8:13 PM corpusc source source ular data data volume [Entiti c volume] by Automat ed count Erythro 29.7 27.0 - pg No Jun 10 cyte 34.3 informa informa 2016 mean tion in tion in 8:13 PM corpusc source source ular data data hemoglo bin [Entiti c mass] by Automat ed count Erythro 33.6 32.1 - gm/dL No Jun 10 cyte 35.3 informa informa 2017 mean tion in tion in 8:13 PM corpusc source source ular data data hemoglo bin concent ration [Mass/v olume] by Automat ed count Erythro 13.6 11.5 - % No Jun 10 cyte 15.0 informa informa 2016 distrib tion in tion in 8:13 PM ution source source width data data [Ratio] by Automat ed count Platele 296 144 - x10(3)/ No No Jun 10 ts 423 mcL informa informa 2016 [#/volu tion in tion in 8:13 PM me] in source source Blood data data by Automat ed count MPV 8.0 6.8 - fL No Jun 10 10.8 informa informa 2017 tion in tion in 8:13 PM source source data data TSH Observa Value Referen Units Interpr Notes Date tion ce etation Range Thyrotr 2.840 0.270 - mcIU/mL No No Apr 16 opin 4.200 informa informa 2016 [Units/ tion in tion in 7:45 PM volume] source source in data data Serum or Plasma Free T4 Observa Value Referen Units Interpr Notes Date tion ce etation Range Thyroxi 1.09 0.80 - ng/dL No No Apr 16 ne (T4) 2.00 informa informa 2016 free tion in tion in 7:45 PM [Mass/v source source olume] data data in Serum or Plasma Free T3 Observa Value Referen Units Interpr Notes Date tion ce etation Range T3 Free 3.16 2.00 - pg/mL No No Apr 16 4.40 informa informa 2016 tion in tion in 7:45 PM source source data data Iron/UIBC Observa Value Referen Units Interpr Notes Date tion ce etation Range Iron 25 30 - mcg/dL Low No Apr 16 [Mass/v 160 informa 2016 olume] tion in 6:57 PM in source Serum data or Plasma UIBC 427 112 - mcg/dL High No Apr 16 347 informa 2016 tion in 6:57 PM source data Transfe 6 20 - 50 % Low No Apr 16 rrin informa 2016 Sat tion in 6:57 PM source data Free T3 Observa Value Referen Units Interpr Notes Date tion ce etation Range T3 Free 2.97 2.00 - pg/mL No No Mar 30 4.40 informa informa 2016 tion in tion in 10:37 source source PM data data Free T4 Observa Value Referen Units Interpr Notes Date tion ce etation Range Thyroxi 1.21 0.80 - ng/dL No No Mar 30 ne (T4) 2.00 informa informa 2016 free tion in tion in 10:36 [Mass/v source source PM olume] data data in Serum or Plasma Hep Prf-Ac Observa Value Referen Units Interpr Notes Date tion ce etation Range Hepatit Negativ Negativ No No No Mar 16 is B e e informa informa informa 2016 virus tion in tion in tion in 9:20 AM surface source source source Ag data data data [Presen ce] in Serum by Immunoa ssay Hep B Negativ Negativ No No No Mar 16 Core e e informa informa informa 2016 IgM tion in tion in tion in 9:20 AM source source source data data data Hepatit Negativ Negativ No No No Mar 16 is A e e informa informa informa 2016 virus tion in tion in tion in 9:19 AM Ab source source source [Units/ data data data volume] in Serum by Radioim munoass ay (ELOY) Hep C Negativ Negativ No No No Mar 16 Ab e e informa informa informa 2016 tion in tion in tion in 9:21 AM source source source data data data Diff Observa Value Referen Units Interpr Notes Date tion ce etation Range Aniso Slight No No No No Mar 15 informa informa informa informa 2016 tion in tion in tion in tion in 8:48 PM source source source source data data data data Polychr Slight No No No No Mar 15 om informa informa informa informa 2016 tion in tion in tion in tion in 8:48 PM source source source source data data data data Ovalocy Occasio No No No No Mar 15 te nal informa informa informa informa 2016 tion in tion in tion in tion in 8:48 PM source source source source data data data data Crenate Occasio No No No No Mar 15 d Cell nal informa informa informa informa 2016 tion in tion in tion in tion in 8:48 PM source source source source data data data data Auto Diff Observa Value Referen Units Interpr Notes Date tion ce etation Range Neutrop 55.3 No % No No Mar 15 hils informa informa informa 2016 [#/volu tion in tion in tion in 8:48 PM me] in source source source Blood data data data by Automat ed count Lymphoc 36.2 No % No No Mar 15 ytes informa informa informa 2016 [#/volu tion in tion in tion in 8:48 PM me] in source source source Blood data data data by Automat ed count Monocyt 6.1 No % No No Mar 15 es informa informa informa 2016 [#/volu tion in tion in tion in 8:48 PM me] in source source source Blood data data data by Automat ed count Eos 1.7 No % No No Nov 28 Percent informa informa informa 2016 tion in tion in tion in 8:48 PM source source source data data data Baso 0.7 No % No No Mar 15 Percent informa informa informa 2016 tion in tion in tion in 8:48 PM source source source data data data Neut# 6.5 1.8 - x10(3)/ No No Feb 28 7.7 mcL informa informa 2016 tion in tion in 8:48 PM source source data data Lymph# 4.2 0.6 - x10(3)/ No No Feb 28 4.8 mcL informa informa 2016 tion in tion in 8:48 PM source source data data [place]# 0.7 0.0 - x10(3)/ No No Mar 15 1.3 mcL informa informa 2016 tion in tion in 8:48 PM source source data data Eos# 0.2 0.0 - x10(3)/ No No Feb 28 0.5 mcL informa informa 2016 tion in tion in 8:48 PM source source data data Baso# 0.1 0.0 - x10(3)/ No No Feb 28 0.2 mcL informa informa 2016 tion in tion in 8:48 PM source source data data CBC Observa Value Referen Units Interpr Notes Date tion ce etation Range LEUKOCY 11.7 4.0 - x10(3)/ High No Mar 15 ADELSO 11.0 mcL informa 2016 tion in 8:48 PM source data Erythro 4.35 3.80 - x10(6)/ No No Mar 15 cytes 5.10 mcL informa informa 2015 [#/volu tion in tion in 8:48 PM me] in source source Blood data data by Automat ed count Hemoglo 13.0 12.0 - gm/dL No No Mar 15 bin 15.6 informa informa 2016 [Mass/v tion in tion in 8:48 PM olume] source source in data data Blood Hematoc 39.9 35.7 - % No Mar 15 rit 45.9 informa informa 2016 [Volume tion in tion in 8:48 PM source source Fractio data data n] of Blood by Automat ed count Erythro 91.7 82.5 - fL No Mar 15 cyte 99.8 informa informa 2015 mean tion in tion in 8:48 PM corpusc source source ular data data volume [Entiti c volume] by Automat ed count Erythro 29.9 27.0 - pg No Mar 15 cyte 34.3 informa informa 2016 mean tion in tion in 8:48 PM corpusc source source ular data data hemoglo bin [Entiti c mass] by Automat ed count Erythro 32.6 32.1 - gm/dL No Mar 15 cyte 35.3 informa informa 2015 mean tion in tion in 8:48 PM corpusc source source ular data data hemoglo bin concent ration [Mass/v olume] by Automat ed count Erythro 13.8 11.5 - % No Mar 15 cyte 15.0 informa informa 2016 distrib tion in tion in 8:48 PM ution source source width data data [Ratio] by Automat ed count Platele 332 144 - x10(3)/ No Mar 15 ts 423 mcL a informa 2015 [#/volu tion in tion in 8:48 PM me] in source source Blood data data by Automat ed count MPV 8.8 6.8 - fL No Mar 15 10.8 informa informa 2016 tion in tion in 8:48 PM source source data data Glyco Observa Value Referen Units Interpr Notes Date tion ce etation Range Hemoglo 5.8 <=7.0 % No Referen Mar 15 bin informa ce 2016 A1c/Hem tion in Interva 8:23 PM oglobin source l for .total data Hgb in A1c\.br Blood \\.br\H gb A1c Interpr etation \.br\-- ------- -- ------- ------- --\.br\ \.br\ < 6.0 Non-Lindsay betic Range\. br\6.0 - 7.0 ADA Therape utic Target\ .br\ > 7.0 Action suggest ed Vit D 25-OH Observa Value Referen Units Interpr Notes Date tion ce etation Range Vitamin 31.8 30.0 - ng/mL No INTERPR Mar 15 D-25 120.0 informa ETIVE 2016 OH tion in INFORMA 7:01 PM source TION: data Vitamin D, 25-Hydr oxy\.br \\.br\< 20 ng/mL Deficie ncy\.br \20 - 29 ng/mL Insuffi ciency\ .br\30 - 80 ng/mL Optimum Level\. br\>120 ng/mL Possibl e Toxicit y\.br\\ .br\NOT E: For infants and childre n up to 17 years of age, the optimum level is >=20 ng/mL. This assay accurat andrei quantif ies the sum of vitamin D3, 25-Hydr oxy and vitamin D2, 25-Hydr oxy. Lipid Scr Observa Value Referen Units Interpr Notes Date tion ce etation Range Cholest 251 <=200 mg/dL High < 200 Mar 15 rubia 2016 [Percen 6:57 PM tile] Desirab le\.br\ 200 - 239 Borderl ine High\.b r\>= 240 High TRIGLYC 161 <=150 mg/dL High < 150 Mar 15 ERIDES. 2016 TOTAL Normal\ 6:57 PM .br\150 - 199 Borderl ine High\.b r\200 - 499 High\.b r\ >= 500 Very High CHOLEST 72 >=40 mg/dL No > 60 Mar 15 EROLS.I informa 2016 N HDL tion in Optimal 6:57 PM source \.br\40 data - 60 Accepta ble\.br \ < 40 Low LDL 147 <=100 mg/dL High < 100 Mar 15 Calcula 2016 tash 6:57 PM Optimal \.br\10 0 - 129 Near or above optimal \.br\13 0 - 159 Borderl ine High\.b r\160 - 189 High\.b r\ >= 190 Very High TSH Observa Value Referen Units Interpr Notes Date tion ce etation Range Thyrotr 6.150 0.270 - mcIU/mL High No Mar 15 opin 4.200 informa 2015 [Units/ tion in 6:36 PM volume] source in data Serum or Plasma Uric Acid Observa Value Referen Units Interpr Notes Date tion ce etation Range Urate 5.1 2.4 - mg/dL No No Mar 15 [Mass/v 5.7 informa informa 2016 olume] tion in tion in 6:36 PM in source source Serum data data or Plasma EK EKG 12 LEAD Observa Value Referen Units Interpr Notes Date tion ce etation Range Station No No No No Sep 9 teddy ECG informa informa informa informa 2015 tion in tion in tion in tion in 4:26 PM Study\. source source source source br\St. data data data data Elizabe th [employer] d\.br\I nterpre tive Stateme nts\.br \SINUS RHYTHM\ .br\NON SPECIFI C T-WAVE ABNORMA LITY\.b r\LVH BY VOLTAGE - PROBABL E NORMAL VARIANT \.br\NO PRIOR ECG FOR COMPARI SON\.br \Electr onicall y Signed On 12-27-19 16 9:18:40 EDT by Cj Mclaughlin MD RIGHT UPPER QUADRANT Observa Value Referen Units Interpr Notes Date tion ce etation Range Right No No No No Nov 15 upper informa informa informa informa 2015 quadran tion in tion in tion in tion in 3:35 PM t source source source source abdomin data data data data al ultraso und dated 12/01/19 16\.br\ \.br\CO MPARISO N: CTs from 07/12/19 16 and 04/29/19 10, ultraso und from 04/29/19 15\.br\ \.br\HI STORY: Elevate d liver functio n tests, bloatin g\.br\\ .br\FIN DINGS:\ .br\\.b r\The liver is coarsen ed in echotex ture and increas ed in echogen icity,\ .br\com patible \.br\wi th fatty infiltr ation when correla tash with low-att enuatio n appeara nce of\.br\ the\.br \liver on CT from 07/12/19 16. In the superio r aspect of the right hepatic \.br\lo be\.br\ posteri stephen, there is an oval circums cribed hypoech oic lesion measuri ng 1.6\.br \x\.br\ 1.9 x 1.7 cm. This corresp onds to a site of periphe ral nodular enhance ment\.b r\on\.b r\prior CTs. No other focal mass identif ied within visuali zed portion s of the\.br \liver by ultraso und. No evidenc e of biliary ductal dilatat ion. Common duct\.b r\measu res 4 to 5 mm in diamete r proxima lly. It is obscure d distall y.\.br\ Gallbla dder\.b r\is reporte dly surgica lly absent. No free fluid identif ied. Limited \.br\vi sualize d\.br\p ortions of the pancrea s and right kidney are unremar kable. The pancrea tic\.br \head\. br\and tail are mostly obscure d by overlyi ng bowel gas.\.b r\\.br\ \.br\1. Coarse and echogen ic liver, compati ble with fatty infiltr ation.\ .br\\.b r\2. Superim posed 1.9 cm hypoech oic mass in the superio r posteri or right\. br\hepa tic\.br \lobe corresp onds to a lesion on prior CTs. As it demonst rated periphe ral\.br \nodula r\.br\e nhancem ent on prior CTs, this is most suggest jhoana of a hemangi reg. Its\.br \atypic al\.br\ hypoech oic appeara nce may be reflect jhoana of underly ing fatty liver\. br\infi ltratio n.\.br\ If definit jhoana imaging confirm ation is needed, multiph asic contras t enhance d\.br\l iver CT or MRI could be perform ed in follow- up.\.br \\.br\3 . Status post cholecy stectom y.\.br\ Free T4 Observa Value Referen Units Interpr Notes Date tion ce etation Range Thyroxi 1.04 0.93 - ng/dL No No Oct 28 ne (T4) 1.70 informa informa 2015 free tion in tion in 1:21 PM [Mass/v source source olume] data data in Serum or Plasma TSH Observa Value Referen Units Interpr Notes Date tion ce etation Range Thyrotr 2.370 0.270 - mcIU/mL No No Oct 28 opin 4.200 informa informa 2016 [Units/ tion in tion in 1:21 PM volume] source source in data data Serum or Plasma Auto Diff Observa Value Referen Units Interpr Notes Date tion ce etation Range Neutrop 55.3 No % No No Oct 28 hils informa informa informa 2015 [#/volu tion in tion in tion in 12:56 me] in source source source PM Blood data data data by Automat ed count Lymphoc 33.5 No % No No Oct 28 ytes informa informa informa 2016 [#/volu tion in tion in tion in 12:56 me] in source source source PM Blood data data data by Automat ed count Monocyt 7.2 No % No No Oct 28 es informa informa informa 2016 [#/volu tion in tion in tion in 12:56 me] in source source source PM Blood data data data by Automat ed count Eos 3.3 No % No No Oct 28 Percent informa informa informa 2016 tion in tion in tion in 12:56 source source source PM data data data Baso 0.7 No % No No Oct 28 Percent informa informa informa 2016 tion in tion in tion in 12:56 source source source PM data data data Neut# 4.9 1.8 - x10(3)/ No No Oct 28 7.7 mcL informa informa 2016 tion in tion in 12:56 source source PM data data Lymph# 2.9 0.6 - x10(3)/ No No Oct 28 4.8 mcL informa informa 2016 tion in tion in 12:56 source source PM data data [place]# 0.6 0.0 - x10(3)/ No No Oct 28 1.3 mcL informa informa 2016 tion in tion in 12:56 source source PM data data Eos# 0.3 0.0 - x10(3)/ No No Oct 13 0.5 mcL informa informa 2016 tion in tion in 12:56 source source PM data data Baso# 0.1 0.0 - x10(3)/ No No Oct 13 0.2 mcL informa informa 2016 tion in tion in 12:56 source source PM data data CBC Observa Value Referen Units Interpr Notes Date tion ce etation Range LEUKOCY 8.8 4.0 - x10(3)/ No No Oct 28 ADELSO 11.0 mcL informa informa 2016 tion in tion in 12:56 source source PM data data Erythro 4.14 3.80 - x10(6)/ No No Oct 28 cytes 5.10 mcL informa informa 2016 [#/volu tion in tion in 12:56 me] in source source PM Blood data data by Automat ed count Hemoglo 12.1 12.0 - gm/dL No No Oct 28 bin 15.6 informa informa 2016 [Mass/v tion in tion in 12:56 olume] source source PM in data data Blood Hematoc 37.7 35.7 - % No No Oct 28 rit 45.9 informa informa 2016 [Volume tion in tion in 12:56 source source PM Fractio data data n] of Blood by Automat ed count Erythro 91.0 82.5 - fL No No Oct 28 cyte 99.8 informa informa 2015 mean tion in tion in 12:56 corpusc source source PM ular data data volume [Entiti c volume] by Automat ed count Erythro 29.1 27.0 - pg No No Oct 28 cyte 34.3 informa informa 2016 mean tion in tion in 12:56 corpusc source source PM ular data data hemoglo bin [Entiti c mass] by Automat ed count Erythro 32.0 32.1 - gm/dL Low No Oct 28 cyte 35.3 informa 2015 mean tion in 12:56 corpusc source PM ular data hemoglo bin concent ration [Mass/v olume] by Automat ed count Erythro 13.7 11.5 - % No No Oct 28 cyte 15.0 informa informa 2016 distrib tion in tion in 12:56 ution source source PM width data data [Ratio] by Automat ed count Platele 289 144 - x10(3)/ No No Oct 28 ts 423 mcL informa informa 2016 [#/volu tion in tion in 12:56 me] in source source PM Blood data data by Automat ed count MPV 8.8 6.8 - fL No No Oct 28 10.8 informa informa 2016 tion in tion in 12:56 source source PM data data MM MAMMO DIGITAL SCREENING W CAD BILAT Observa Value Referen Units Interpr Notes Date tion ce etation Range Procedu No No No No Sep 23 re:MM informa informa informa informa 2016 MAMMO tion in tion in tion in tion in 9:59 AM DIGITAL source source source source data data data data SCREENI NG W CAD BILAT\. br\Reas on for exam: screeni ng (asympt omatic) .\.br\M M MAMMO DIG SCREEN CAD BILAT\. br\Bila teral CC and MLO view(s) were taken.\ .br\The breast tissue is heterog eneousl y dense. This may lower the\.br \sensit ivity\. br\of mammogr aphy. No suspici ous calcifi cations .\.br\C ompared with prior studies the most recent being 07-02-14 \.br\IM PRESSIO N: Negativ e (ACR-Ca tegory- 1)\.br\ RECOMME NDATION :\.br\R outine screeni ng mammogr am in 1 year.\. br\* The patient with a palpabl e abnorma lity, unexpla ined by breast\ .br\domi ging, should be managed on clinica l basis by the attendi ng physici an.\.br \* Breast imaging has a false negativ e rate of 15%.\.b r\* The patient was notifie d by mail of the results of this examina tion.\. br\*The patient 's informa tion was entered into a [employer] r system with a\.br\t arget\. br\due date for the next mammogr am.\.br \The mammogr am was reviewe d by a Radiolo gist and CAD. DX BONE DENSITY AXIAL SKELETON Observa Value Referen Units Interpr Notes Date ti ce etation Range Indicat No No No No Sep 23 ion: informa informa informa informa 2015 The tion in tion in tion in tion in 9:20 AM patient source source source source is a data data data data post-me nopausa l female under age\.br \66 with clinica l risk factors for low bone density or an\.br\ osteopo rotic fractur e that require s a bone density assessm ent.\.b r\\.br\ \.br\St gabino was perform ed on Discove ry APEX 3.2.\.b r\\.br\ \.br\\. br\Bone Density :\.br\- ------- ------- ------- ------- ------- ------- ------- ------- ------- -\.br\R egion BMD T-score Z-score \.br\-- ------- ------- ------- ------- ------- ------- ------- ------- ------- \.br\AP Spine (L1-L4) 0.970 -0.7 0.3\.br \Femora l Neck (Right) 0.833 -0.1 0.8\.br \Total Hip (Right) 0.946 0.0 0.6\.br \1/3 Radius (Left) 0.708 0.2 1.1\.br \------ ------- ------- ------- ------- ------- ------- ------- ------- ---\.br \\.br\[facility] ation criteri a for BMD interpr etation \.br\cl assify patient s as:\.br \Normal (T-scor e at or above -1.0),\ .br\Low Bone Density (T-scor e between -1.0 and -2.5), or\.br\ Osteopo rotic (T-scor e at or below -2.5).\ .br\T Scores are reporte d in Postmen opausal women and in men age 50\.br\ and older.\ .br\Z-s cores are reporte d in females prior to [facility] and in\.br\ males younger than age 50.\.br \\.br\\ .br\10- year Fractur e Risk:\. br\---- ------- ------- ------- ------- ------- ------- ------- ------- -----\. br\FRAX not reporte d because :\.br\A ll T-score s at or above -1.0\.b r\----- ------- ------- ------- ------- ------- ------- ------- ------- ----\.b r\\.br\ \.br\Pr evious Exams:\ .br\--- ------- ------- ------- ------- ------- ------- ------- ------- ------\ .br\Reg ion Date Age BMD T-score BMD Change* *\.br\- ------- ------- ------- ------- ------- ------- ------- ------- ------- -\.br\A P Spine(L 1-L4)\. br\11/2015 54 0.970 -0.7 6.7%*\. br\07/17 50 0.909 -1.3\.b r\\.br\ Total Hip(Rig ht)\.br \2015 54 0.946 0.0 0.8%\.b r\07/28 50 0.938 0.0\.br \\.br\- ------- ------- ------- ------- ------- ------- ------- ------- ------- -\.br\* Denotes signifi cance at 95% confide nce level, site specifi c\.br\L SC for AP Spine = 0.031 g/cm2, site specifi c LSC for Total\. br\Hip = 0.025 g/cm2 BMD is shown in g/cm2 and BMD Change\ .br\ind icates change vs previou s BMD\.br \\.br\\ .br\Cli nical Informa tion Provide d by Patient :\.br\- ------- ------- ------- ------- ------- ------- ------- ------- ------- -\.br\H as used the followi medicat ions: Disamantati c\.br\H as the followi medical conditi ons: Back pain, Hip pain, IBS\.br \Patien t maximum height was 62\.br\ Menopau se Age: 51\.br\ ------- ------- ------- ------- ------- ------- ------- ------- ------- --\.br\ \.br\In terpret ation:\ .br\Bon e mineral density is in the normal range.\ .br\\.b r\The spine bone mineral density is signifi cantly increas ed from\.b r\the last exam.\. br\The spine portion of the study is limited by hypertr ophic\. br\hancock ges.\.b r\\.br\ The right hip bone mineral density is not signifi cantly changed \.br\si nce the last exam.\. br\\.br \\.br\A minimum of two years may be require d between bone density \.br\st udies due to inheren t testing precisi on limitat ions.\. br\Inte rvals between BMD testing should be determi parish accordi ng to\.br\ each patient 's clinica l status. \.br\\. br\Repo rted by: Yuliana Forman PA-C, CCD on 016 11:03:0 0 AM. Vit D 25-OH Observa Value Referen Units Interpr Notes Date tion ce etation Range Vitamin 44.6 30.0 - ng/mL No INTERPR Sep 17 D-25 120.0 informa ETIVE 2015 OH tion in INFORMA 8:03 PM source TION: data Vitamin D, 25-Hydr oxy\.br \\.br\< 20 ng/mL Deficie ncy\.br \20 - 29 ng/mL Insuffi ciency\ .br\30 - 80 ng/mL Optimum Level\. br\>120 ng/mL Possibl e Toxicit y\.br\\ .br\NOT E: For infants and childre n up to 17 years of age, the optimum level is >=20 ng/mL. This assay accurat andrei quantif ies the sum of vitamin D3, 25-Hydr oxy and vitamin D2, 25-Hydr oxy. Glyco Observa Value Referen Units Interpr Notes ti ce etation Range Hemoglo 5.6 <=7.0 % No Referen Sep 17 bin informa ce 2015 A1c/Hem tion in Interva 7:27 PM oglobin source l for .total data Hgb in A1c\.br Blood \\.br\H gb A1c Interpr etation \.br\-- ------- -- ------- ------- --\.br\ \.br\ < 6.0 Non-[place] betic Range\. br\6.0 - 7.0 ADA Therape utic Target\ .br\ > 7.0 Action suggest ed B12/ FA Observa Value Referen Units Interpr Notes Date ti ce etation Range CYANOCO 1250 211 - pg/mL High No Manny 2 BALAMIN 946 informa 2016 .TRUE tion in 6:05 PM source data Folic 18.07 4.50 - ng/mL No No Sep 2 Acid 37.30 informa informa 2016 Lvl tion in tion in 6:06 PM source source data data Lipid Scr Observa Value Referen Units Interpr Notes Date tion ce etation Range Cholest 232 <=200 mg/dL High < 200 Manny 2 rubia 2016 [Percen 5:55 PM tile] Desirab le\.br\ 200 - 239 Borderl ine High\.b r\>= 240 High TRIGLYC 86 <=150 mg/dL No < 150 Manny 2 ERIDES. informa 2016 TOTAL tion in Normal\ 5:55 PM source .br\150 data - 199 Borderl ine High\.b r\200 - 499 High\.b r\ >= 500 Very High CHOLEST 64 >=40 mg/dL No > 60 Manny 2 EROLS.I informa 2016 N HDL tion in Optimal 5:55 PM source \.br\40 data - 60 Accepta ble\.br \ < 40 Low LDL 151 <=100 mg/dL High < 100 Manny 2 Calcula 2016 tash 5:55 PM Optimal \.br\10 0 - 129 Near or above optimal \.br\13 0 - 159 Borderl ine High\.b r\160 - 189 High\.b r\ >= 190 Very High TSH Observa Value Referen Units Interpr Notes Date tion ce etation Range Thyrotr 2.580 0.270 - mcIU/mL No No Sep 2 opin 4.200 informa informa 2016 [Units/ tion in tion in 5:55 PM volume] source source in data data Serum or Plasma Iron/UIBC Observa Value Referen Units Interpr Notes Date tion ce etation Range Iron 110 30 - mcg/dL No No Sep 2 [Mass/v 160 informa informa 2016 olume] tion in tion in 5:55 PM in source source Serum data data or Plasma UIBC 327 112 - mcg/dL No No Manny 2 347 informa informa 2016 tion in tion in 5:55 PM source source data data Transfe 25 20 - 50 % No No Sep 2 rrin informa informa 2016 Sat tion in tion in 5:55 PM source source data data Auto Diff Observa Value Referen Units Interpr Notes Date tion ce etation Range Neutrop 51.9 No % No No Manny 2 hils informa informa informa 2016 [#/volu tion in tion in tion in 5:16 PM me] in source source source Blood data data data by Automat ed count Lymphoc 37.9 No % No No Manny 2 ytes informa informa informa 2016 [#/volu tion in tion in tion in 5:16 PM me] in source source source Blood data data data by Automat ed count Monocyt 6.4 No % No No Manny 2 es informa informa informa 2016 [#/volu tion in tion in tion in 5:16 PM me] in source source source Blood data data data by Automat ed count Eos 3.1 No % No No Manny 2 Percent informa informa informa 2016 tion in tion in tion in 5:16 PM source source source data data data Baso 0.7 No % No No Manny 2 Percent informa informa informa 2016 tion in tion in tion in 5:16 PM source source source data data data Neut# 4.2 1.8 - x10(3)/ No No Manny 2 7.7 mcL informa informa 2016 tion in tion in 5:16 PM source source data data Lymph# 3.0 0.6 - x10(3)/ No No Manny 2 4.8 mcL informa informa 2016 tion in tion in 5:16 PM source source data data [place]# 0.5 0.0 - x10(3)/ No No Manny 2 1.3 mcL informa informa 2016 tion in tion in 5:16 PM source source data data Eos# 0.2 0.0 - x10(3)/ No No Manny 2 0.5 mcL informa informa 2016 tion in tion in 5:16 PM source source data data Baso# 0.1 0.0 - x10(3)/ No No Manny 2 0.2 mcL informa informa 2016 tion in tion in 5:16 PM source source data data CBC Observa Value Referen Units Interpr Notes Date tion ce etation Range LEUKOCY 8.0 4.0 - x10(3)/ No No Manny 2 ADELSO 11.0 mcL informa informa 2016 tion in tion in 5:16 PM source source data data Erythro 4.34 3.80 - x10(6)/ No No Manny 2 cytes 5.10 mcL informa informa 2016 [#/volu tion in tion in 5:16 PM me] in source source Blood data data by Automat ed count Hemoglo 12.6 12.0 - gm/dL No No Sep 2 bin 15.6 informa informa 2016 [Mass/v tion in tion in 5:16 PM olume] source source in data data Blood Hematoc 39.2 35.7 - % No No Sep 2 rit 45.9 informa informa 2016 [Volume tion in tion in 5:16 PM source source Fractio data data n] of Blood by Automat ed count Erythro 90.3 82.5 - fL No No Sep 2 cyte 99.8 informa informa 2016 mean tion in tion in 5:16 PM corpusc source source ular data data volume [Entiti c volume] by Automat ed count Erythro 29.0 27.0 - pg No No Sep 2 cyte 34.3 informa informa 2016 mean tion in tion in 5:16 PM corpusc source source ular data data hemoglo bin [Entiti c mass] by Automat ed count Erythro 32.1 32.1 - gm/dL No No Sep 2 cyte 35.3 informa informa 2016 mean tion in tion in 5:16 PM corpusc source source ular data data hemoglo bin concent ration [Mass/v olume] by Automat ed count Erythro 13.1 11.5 - % No No Manny 2 cyte 15.0 informa informa 2016 distrib tion in tion in 5:16 PM ution source source width data data [Ratio] by Automat ed count Platele 288 144 - x10(3)/ No No Manny 2 ts 423 mcL informa informa 2016 [#/volu tion in tion in 5:16 PM me] in source source Blood data data by Automat ed count MPV 9.0 6.8 - fL No No Sep 2 10.8 informa informa 2016 tion in tion in 5:16 PM source source data data CT ABDOMEN PELVIS W CONTRAST Observa Value Referen Units Interpr Notes Date tion ce etation Range Abdomen No No No No Jul 11 and informa informa informa informa 2016 pelvis tion in tion in tion in tion in 7:[address] with source source source source data data data data contras t dated 07/12/19 16\.br\ \.br\Co mpariso n: 04/29/19 10\.br\ \.br\Hi story: Abdomin al bloatin g/diste ntion, irritab le bowel syndrom e without \.br\di arrhea, anorexi a\.br\\ .br\Rod hnical factors : Oral and 100 mL IV Isovue- 370 contras t were\.b r\admin istered .\.br\\ .br\Fin dings:\ .br\\.b r\Abdom en: Calcifi cations in the right lower lobe are compati ble with old\.br \healed \.br\gr anuloma tous disease . Include d lung bases also demonst rate mild scatter ed\.br\ linear subpleu ral opaciti es, compati ble with atelect asis or scarrin g. The\.br \liver\ .br\is low in attenua tion, compati ble with fatty infiltr ation. In the superio r\.br\p osterio r segment of the right hepatic lobe, there is a 1.8 x 1.8 cm\.br\ lesion\ .br\whi ch demonst rates periphe ral nodular enhance ment. In retrosp ect, this was\.br \presen t on prior CT from 04/29/19 10. Based on its enhance ment\.b r\shira cterist ics,\.b r\this is most compati ble with a hemangi reg. Located superio r to the distal\ .br\verdugo creas, there is an enhanci ng 2.6 x 1.4 x 1.5 cm lesion, which\. br\demo nstrate s\.br\p eripher al calcifi cation. This appears to be contigu ous with the splenic \.br\ar yenni\.b r\and is compati ble with a splenic artery aneurys m. This is similar in size\.b r\to\.b r\prior from 04/29/19 10. There is no evidenc e of active arteria l\.br\e xtravas ation. No\.br\ new focal abnorma lity identif ied within abdomin al solid viscera . No\.br\ hydrone phrosis . Gallbla dder is surgica lly absent. No evidenc e of bowel\. br\obst ruction , free fluid, free air, or focal inflamm atory process . The\.br \append ix\.br\ is within normal limits. \.br\\. br\Pelv is: Uterus is surgica lly absent. Pelvic viscera are otherwi se\.br\ unremar kable.\ .br\No depende nt free fluid.\ .br\\.b r\Impre ssion:\ .br\\.b r\1. No acute intra-a bdomina l or intrape lvic abnorma lity identif ied.\.b r\\.br\ 2. Partial ly calcifi ed splenic artery aneurys m measure s approxi mately 2.6\.br \x 1.4\.br \x 1.5 cm, similar in size to prior CT from 04/29/19 10.\.br \\.br\3 . Fatty liver.\ .br\\.b r\4. Periphe ral nodular enhanci ng lesion in the superio r posteri or segment \.br\of the\.br \right hepatic lobe is most compati ble with a hemangi reg.\.b r\ B12/ FA Observa Value Referen Units Interpr Notes Date tion ce etation Range CYANOCO 1178 211 - pg/mL High No Jul 08 BALAMIN 946 informa 2016 .TRUE tion in 10:02 source PM data Folic 12.31 4.50 - ng/mL No No Jul 08 Acid 37.30 informa informa 2016 Lvl tion in tion in 10:02 source source PM data data Iron/UIBC Observa Value Referen Units Interpr Notes Date tion ce etation Range Iron 57 30 - mcg/dL No No Jul 08 [Mass/v 160 informa informa 2016 olume] tion in tion in 9:45 PM in source source Serum data data or Plasma UIBC 414 112 - mcg/dL High No Jul 08 347 informa 2016 tion in 9:45 PM source data Transfe 12 20 - 50 % Low No Jul 08 rrin informa 2016 Sat tion in 9:45 PM source data CBC Observa Value Referen Units Interpr Notes Date tion ce etation Range LEUKOCY 9.4 4.0 - x10(3)/ No No Jul 08 ADELSO 11.0 mcL informa informa 2016 tion in tion in 9:29 PM source source data data Erythro 4.07 3.80 - x10(6)/ No Jul 08 cytes 5.10 mcL informa informa 2016 [#/volu tion in tion in 9:29 PM me] in source source Blood data data by Automat ed count Hemoglo 12.1 12.0 - gm/dL No Jul 08 bin 15.6 informa informa 2016 [Mass/v tion in tion in 9:29 PM olume] source source in data data Blood Hematoc 36.9 35.7 - % No Jul 08 rit 45.9 informa informa 2016 [Volume tion in tion in 9:29 PM source source Fractio data data n] of Blood by Automat ed count Erythro 90.8 82.5 - fL No Jul 08 cyte 99.8 informa informa 2016 mean tion in tion in 9:29 PM corpusc source source ular data data volume [Entiti c volume] by Automat ed count Erythro 29.7 27.0 - pg No Jul 08 cyte 34.3 informa informa 2016 mean tion in tion in 9:29 PM corpusc source source ular data data hemoglo bin [Entiti c mass] by Automat ed count Erythro 32.8 32.1 - gm/dL No Jul 08 cyte 35.3 informa informa 2016 mean tion in tion in 9:29 PM corpusc source source ular data data hemoglo bin concent ration [Mass/v olume] by Automat ed count Erythro 13.2 11.5 - % No Jul 08 cyte 15.0 informa informa 2016 distrib tion in tion in 9:29 PM ution source source width data data [Ratio] by Automat ed count Platele 307 144 - x10(3)/ No No Jun 23 ts 423 mcL informa informa 2016 [#/volu tion in tion in 9:29 PM me] in source source Blood data data by Automat ed count MPV 9.0 6.8 - fL No No Jun 23 10.8 informa informa 2016 tion in tion in 9:29 PM source source data data Auto Diff Observa Value Referen Units Interpr Notes Date tion ce etation Range Neutrop 46.9 No % No No Jun 23 hils informa informa informa 2016 [#/volu tion in tion in tion in 9:29 PM me] in source source source Blood data data data by Automat ed count Lymphoc 43.5 No % No No Jul 08 ytes informa informa informa 2016 [#/volu tion in tion in tion in 9:29 PM me] in source source source Blood data data data by Automat ed count Monocyt 7.1 No % No No Jul 08 es informa informa informa 2016 [#/volu tion in tion in tion in 9:29 PM me] in source source source Blood data data data by Automat ed count Eos 2.0 No % No No Jun 23 Percent informa informa informa 2016 tion in tion in tion in 9:29 PM source source source data data data Baso 0.5 No % No No Jun 23 Percent informa informa informa 2016 tion in tion in tion in 9:29 PM source source source data data data Neut# 4.4 1.8 - x10(3)/ No No Jun 23 7.7 mcL informa informa 2016 tion in tion in 9:29 PM source source data data Lymph# 4.1 0.6 - x10(3)/ No No Jun 23 4.8 mcL informa informa 2016 tion in tion in 9:29 PM source source data data [place]# 0.7 0.0 - x10(3)/ No No Mar 23 1.3 mcL informa informa 2016 tion in tion in 9:29 PM source source data data Eos# 0.2 0.0 - x10(3)/ No No Jun 23 0.5 mcL informa informa 2016 tion in tion in 9:29 PM source source data data Baso# 0.0 0.0 - x10(3)/ No No Jun 23 0.2 mcL informa informa 2016 tion in tion in 9:29 PM source source data data XR CHEST PA AND LATERAL Observa Value Referen Units Interpr Notes Date ti ce etation Range \.br\XR No No No No Jul 04 CHEST informa informa informa informa 2016 PA AND tion in tion in tion in tion in 2:10 PM LATERAL source source source source data data data data 07/05/19 16 2:10 PM\.br\ \.br\Cl inical: R06.02- Shortne ss of breath- ICD-10- CM\.br\ J20.9-A cute bronchi tis, unspeci fied-IC D-10-CM \.br\\. br\COMP ARISONS : None.\. br\\.br \FINDIN GS:\.br \\.br\T he lungs are clear. The costoph renic sulci are sharp. The heart and\.br \medias tinal\. br\cont ours are normal. There are no acute osseous finding s in the chest.\ .br\\.b r\IMPRE SSION:\ .br\\.b r\There is no acute radiogr aphic cardiop ulmonar y disease .\.br\ MM MAMMO DIGITAL SCREENING W CAD BILAT Observa Value Referen Units Interpr Notes Date ti ce etation Range Procedu No No No No Jul 02 re:MM informa informa informa informa 2014 MAMMO tion in tion in tion in tion in 4:43 PM DIGITAL source source source source data data data data SCREENI NG W CAD BILAT\. br\Reas on for exam: screeni ng (asympt omatic) .\.br\M M MAMMO DIG SCREEN CAD BILAT\. br\Bila teral CC and MLO view(s) were taken.\ .br\Rod hnologi st: Marilu Anna, RT\.br\ The breast tissue is heterog eneousl y dense. This may lower the\.br \sensit ivity\. br\of mammogr aphy. No suspici ous calcifi cations .\.br\C ompared with prior studies the most recent being 07-29-11 \.br\IM PRESSIO N: Negativ e (ACR-Ca tegory- 1)\.br\ RECOMME NDATION :\.br\R outine screeni ng mammogr am in 1 year.\. br\* The patient with a palpabl e abnorma lity, unexpla ined by breast\ .br\domi ging, should be managed on clinica l basis by the attendi ng physici an.\.br \* Breast imaging has a false negativ e rate of 15%.\.b r\* The patient was notifie d by mail of the results of this examina tion.\. br\*The patient 's informa tion was entered into a [employer] r system with a\.br\t arget\. br\due date for the next mammogr am.\.br \The mammogr am was reviewe d by a Radiolo gist and CAD. XR LUMBAR SPINE AP LATERAL AND OBLIQUES Observa Value Referen Units Interpr Notes Date tion ce etation Range Lumbosa No No No No Jul 02 cral informa informa informa informa 2014 spine tion in tion in tion in tion in 4:24 PM with source source source source oblique data data data data s 5 views\. br\\.br \ 015\.br \\.br\C ompare: None availab le\.br\ \.br\CL INICAL HISTORY : back pain\.b r\\.br\ FINDING S:\.br\ \.br\Mi ld scolios is convex to the right present . Vertebr al body height\ .br\sary ntained . Mild multile vita\.br \disc space narrowi ng present through out the lumbar spine. No lytic or\.br\ obstruc tive process . No\.br\ spondyl olysis or spondyl olisthe sis. Mild facet arthrop athy present L5-S1\. br\bila terally \.br\\. br\IMPR ESSION: \.br\\. br\Mild multile vita spondyl itic change. If there is strong concern for\.br \radicu lopathy or myelopa thy\.br \MRI is the study of choice. Lipid Scr Observa Value Referen Units Interpr Notes Date tion ce etation Range Cholest 289 <=200 mg/dL High < 200 Jun 26 rubia 2015 [Percen 8:37 PM tile] Desirab le\.br\ 200 - 239 Borderl ine High\.b r\>= 240 High TRIGLYC 200 <=150 mg/dL High < 150 Jun 26 ERIDES. 2015 TOTAL Normal\ 8:37 PM .br\150 - 199 Borderl ine High\.b r\200 - 499 High\.b r\ >= 500 Very High CHOLEST 65 >=40 mg/dL No > 60 Jun 11 EROLS.I informa 2015 N HDL tion in Optimal 8:38 PM source \.br\40 data - 60 Accepta ble\.br \ < 40 Low LDL 184 <=100 mg/dL High < 100 Jun 26 Calcula 2015 tash 8:38 PM Optimal \.br\10 0 - 129 Near or above optimal \.br\13 0 - 159 Borderl ine High\.b r\160 - 189 High\.b r\ >= 190 Very High Free T3 Observa Value Referen Units Interpr Notes Date tion ce etation Range T3 Free 2.70 2.00 - pg/mL No No Jun 26 4.40 informa informa 2015 tion in tion in 8:38 PM source source data data Free T4 Observa Value Referen Units Interpr Notes Date tion ce etation Range Thyroxi 0.83 0.93 - ng/dL Low No Jun 26 ne (T4) 1.70 informa 2014 free tion in 8:38 PM [Mass/v source olume] data in Serum or Plasma TSH Observa Value Referen Units Interpr Notes Date tion ce etation Range Thyrotr 1.690 0.270 - mcIU/mL No No Jun 26 opin 4.200 informa informa 2014 [Units/ tion in tion in 8:38 PM volume] source source in data data Serum or Plasma CK Observa Value Referen Units Interpr Notes Date tion ce etation Range Creatin 161 26 - IU/L No No Jun 11 e 192 informa informa 2014 kinase tion in tion in 8:37 PM [Enzyma source source tic data data activit y/volum e] in Serum or Plasma Uric Acid Observa Value Referen Units Interpr Notes Date tion ce etation Range Urate 5.9 2.4 - mg/dL High No Jun 26 [Mass/v 5.7 informa 2014 olume] tion in 8:37 PM in source Serum data or Plasma Aldolase-SOLS Observa Value Referen Units Interpr Notes Date tion ce etation Range Aldolas 5.6 <=8.1 No No Perform May 16 e-SOLS informa informa ed at: 2014 tion in tion in [facility] 8:44 AM source source Diag, data data [facility]b r\ [id number].br \ [facility], [place] SSB IgG-SOLS Observa Value Referen Units Interpr Notes Date tion ce etation Range SSB <1.0 <1.0 No No May 15 ([place]) NEG NEG AI informa informa Please 2015 Antibod tion in tion in note 11:59 y, source source change AM IgG-VICTOR HUGO data data in S referen ce range(s ). \.br\ Perform ed at: [facility]\ [address]br \ [place] [address] SSA IgG-SOLS Observa Value Referen Units Interpr Notes Date tion ce etation Range SSA <1.0 <1.0 No No May 15 (Ro)Ant NEG NEG AI informa informa Please 2015 ibody tion in tion in note 11:59 IgG-VICTOR HUGO source source change AM S data data in referen ce range(s ). \.br\ Perform ed at: [facility]br\ [address]br \ [facility] [place] [address] CCP IgG-SOLS Observa Value Referen Units Interpr Notes Date tion ce etation Range Cyclic <2.0 0.0 - No No \.br\ May 15 Citrul 5.0 informa informa 2014 Pep Ab, tion in tion in 11:58 source source AM IgG-VICTOR HUGO data data S Interpr etive Table\. br\ Low Positiv e: 5.1 - 14.9 IU/mL\. br\ High Positiv e: >= 15.0 IU/mL\. br\\.br \ In additio n to the CCP (APCA) result, and clinica l symptom s includi ng\.br\ joint involve ment, the 2010 ACR Classif ication Criteri a for\.br \ scoring /diagno sing Rheumat oid Arthrit is include the results of the\.br \ followi ng tests: RF (95343) , CRP (89089) , and ESR (33562) .\.br\ [email or web address]/ practic e/clini natali/cla ssifica tion/ra /ra_201 0.asp\. br\Perf ormed at: [facility]\.br\ [address], [address]br \ [place] [address] FLACO Scn Observa Value Referen Units Interpr Notes Date tion ce etation Range FLACO Negativ No No No FLACO May 15 Screen e informa informa informa samples 2014 tion in tion in tion in are 10:51 source source source screene AM data data data d using an automat ed EIA assay. All samples that\.b r\scree n positiv e are titered by an IFA method and will include an FLACO pattern .\.br\A titer of < 1:80 is conside red clinica lly insigni ficant. In general , a titer\. br\>= 1:160 is conside red signifi cant positiv e. Vit D 25-OH Observa Value Referen Units Interpr Notes Date ti ce etation Range Vitamin 43.4 30.0 - ng/mL No INTERPR May 15 D-25 120.0 informa ETIVE 2015 [place] tion in INFORMA 10:33 source TION: AM data Vitamin D, 25-Hydr oxy\.br \\.br\< 20 ng/mL Deficie ncy\.br \20 - 29 ng/mL Insuffi ciency\ .br\30 - 80 ng/mL Optimum Level\. br\>120 ng/mL Possibl e Toxicit y\.br\\ .br\NOT E: For infants and childre n up to 17 years of age, the optimum level is >=20 ng/mL. This assay accurat andrei quantif ies the sum of vitamin D3, 25-Hydr oxy and vitamin D2, 25-Hydr oxy. Hep C Ab Observa Value Referen Units Interpr Notes Date tion ce etation Range Hep C Negativ Negativ No No No May 15 Ab e e informa informa informa 2014 tion in tion in tion in 9:37 AM source source source data data data Hep Bs Ag Observa Value Referen Units Interpr Notes Date tion ce etation Range Hepatit Negativ Negativ No No No May 15 is B e e informa informa informa 2014 virus tion in tion in tion in 9:36 AM surface source source source Ag data data data [Presen ce] in Serum by Immunoa ssay HBcAb-SOLS Observa Value Referen Units Interpr Notes Date tion ce etation Range Hepatit NON NON No No Perform May 15 is B REACTIV REACTIV informa informa ed at: 2014 Core E E tion in tion in 2:26 AM Ab, source source [facility] Total-S data data [facility]\.br\ [facility], [address]br \ [place] [address] Sed Rate Observa Value Referen Units Interpr Notes Date tion ce etation Range Erythro 15 0 - 30 mm/hr No No May 14 cyte informa informa 2014 sedimen tion in tion in 9:46 PM tation source source rate by data data Westerg shelly method CRP Observa Value Referen Units Interpr Notes Date tion ce etation Range CRP 3.38 <=5.00 mg/L No No May 14 informa informa 2014 tion in tion in 7:53 PM source source data data Uric Acid Observa Value Referen Units Interpr Notes Date tion ce etation Range Urate 7.0 2.4 - mg/dL High No May 14 [Mass/v 5.7 informa 2014 olume] tion in 7:44 PM in source Serum data or Plasma Auto Diff Observa Value Referen Units Interpr Notes Date tion ce etation Range Neutrop 51.6 No % No No May 14 hils informa informa informa 2014 [#/volu tion in tion in tion in 7:15 PM me] in source source source Blood data data data by Automat ed count Lymphoc 38.4 No % No No May 14 ytes informa informa informa 2014 [#/volu tion in tion in tion in 7:15 PM me] in source source source Blood data data data by Automat ed count Monocyt 6.5 No % No No May 14 es informa informa informa 2014 [#/volu tion in tion in tion in 7:15 PM me] in source source source Blood data data data by Automat ed count Eos 2.9 No % No No May 14 Percent informa informa informa 2014 tion in tion in tion in 7:15 PM source source source data data data Baso 0.6 No % No No May 14 Percent informa informa informa 2014 tion in tion in tion in 7:15 PM source source source data data data Neut# 5.3 1.8 - x10(3)/ No No May 14 7.7 mcL informa informa 2014 tion in tion in 7:15 PM source source data data Lymph# 4.0 0.6 - x10(3)/ No No May 14 4.8 mcL informa informa 2014 tion in tion in 7:15 PM source source data data [place]# 0.7 0.0 - x10(3)/ No No May 14 1.3 mcL informa informa 2014 tion in tion in 7:15 PM source source data data Eos# 0.3 0.0 - x10(3)/ No No May 14 0.5 mcL informa informa 2014 tion in tion in 7:15 PM source source data data Baso# 0.1 0.0 - x10(3)/ No No May 14 0.2 mcL informa informa 2014 tion in tion in 7:15 PM source source data data CBC Observa Value Referen Units Interpr Notes Date tion ce etation Range LEUKOCY 10.3 4.0 - x10(3)/ No No May 14 ADELSO 11.0 mcL informa informa 2014 tion in tion in 7:15 PM source source data data Erythro 4.24 3.80 - x10(6)/ No No May 14 cytes 5.10 mcL informa informa 2014 [#/volu tion in tion in 7:15 PM me] in source source Blood data data by Automat ed count Hemoglo 11.7 12.0 - gm/dL Low No May 14 bin 15.6 informa 2014 [Mass/v tion in 7:15 PM olume] source in data Blood Hematoc 36.3 35.7 - % No No May 14 rit 45.9 informa informa 2015 [Volume tion in tion in 7:15 PM source source Fractio data data n] of Blood by Automat ed count Erythro 85.6 82.5 - fL No No May 14 cyte 99.8 informa informa 2014 mean tion in tion in 7:15 PM corpusc source source ular data data volume [Entiti c volume] by Automat ed count Erythro 27.7 27.0 - pg No No May 14 cyte 34.3 informa informa 2014 mean tion in tion in 7:15 PM corpusc source source ular data data hemoglo bin [Entiti c mass] by Automat ed count Erythro 32.4 32.1 - gm/dL No No May 14 cyte 35.3 informa informa 2014 mean tion in tion in 7:15 PM corpusc source source ular data data hemoglo bin concent ration [Mass/v olume] by Automat ed count Erythro 14.9 11.5 - % No No May 14 cyte 15.0 informa informa 2014 distrib tion in tion in 7:15 PM ution source source width data data [Ratio] by Automat ed count Platele 315 144 - x10(3)/ No No May 14 ts 423 mcL informa informa 2014 [#/volu tion in tion in 7:15 PM me] in source source Blood data data by Automat ed count MPV 8.4 6.8 - fL No No May 14 10.8 informa informa 2014 tion in tion in 7:15 PM source source data data CK Observa Value Referen Units Interpr Notes Date tion ce etation Range Creatin 202 26 - IU/L High No May 14 e 192 informa 2014 kinase tion in 7:05 PM [Enzyma source tic data activit y/volum e] in Serum or Plasma RF Quant Observa Value Referen Units Interpr Notes Date tion ce etation Range RF 10 <=14 IU/mL No No May 14 Titer informa informa 2015 tion in tion in 6:56 PM source source data data US ABDOMEN COMPLETE Observa Value Referen Units Interpr Notes Date tion ce etation Range 04/29/19 No No No No Apr 29\.br\ informa informa informa informa 2014 \.br\Tr tion in tion in tion in tion in 1:02 PM ansabdo source source source source tyler data data data data complet e abdomin al ultraso und with vascula r Doppler \.br\im aging:\ .br\\.b r\HISTO RY: Provide d history of elevate d liver functio n studies . Prior\. br\chol ecystec fabian. No\.br\ compari son ultraso und studies . Direct compari son with 04/29/[address] exam.\. br\\.br \Real-t frederick graysca le/colo r Doppler imaging of the abdomin al structu res\.br \perfor med. No visuali zed\.br \ascite s. The liver appears borderl ine enlarge d with diffuse heterog eneous\ .br\enrique earance of the\.br \liver parench yma. Suspect diffuse fatty infiltr ation changes in this\.b r\patie nt. The visuali zed\.br \pancre as appears unremar kable. The proxima l/mid common bile duct measure s\.br\4 mm. The inferio r\.br\v maynor cava and hepatic veins are patent. The abdomin al aorta appears normal\ .br\in luminal diamete r.\.br\ No evidenc e of aneurys m. No visuali zed splenic enlarge ment. The spleen\ .br\kian sures 10.1 x 5.6 x\.br\8 .2 cm. The kidneys are symmetr ic in size without evidenc e of obstruc tive\.b r\uropa thy or\.br\ nephrol ithiasi s. Right kidney: 11.3 x 5.3 x 6.4 cm. Left kidney: 11.5 x\.br\5 .9 x 4.9 cm.\.br \\.br\I MPRESSI ON:\.br \\.br\1 . Prior cholecy stectom y. No evidenc e of biliary obstruc tion.\. br\\.br \2. Borderl ine enlarge ment of the liver with diffuse fatty infiltr ation\. br\hancock ges suspect ed. No\.br\ focal liver mass/as cites. Please see above detaile d report HBeAg-SOLS Observa Value Referen Units Interpr Notes Date tion ce etation Range Hepatit Negativ Negativ No No Perform Apr 25 is Be e e informa informa ed at: 2014 Antigen tion in tion in 2:01 PM -SOLS source source [facility]\.br\ [address], [address]br \ [place] [address] Celiac Panel 10-SOLS Observa Value Referen Units Interpr Notes Date ti ce etation Range IgA-VICTOR HUGO 190 69 - mg/dL No No Apr 24 S 380 informa informa 2015 tion in tion in 2:26 PM source source data data Endomys NEGATIV NEGATIV No No No Apr 24 ial E E informa informa informa 2014 Screen- tion in tion in tion in 2:26 PM SOLS source source source data data data Gliadin 12.5 <20 No No Referen Apr 24 informa informa ce 2014 Peptide tion in tion in Range:\ 2:26 PM Ab, source source .br\ IgG-VICTOR HUGO data data S <20 Negativ e\.br\ 20-25 Equivoc al\.br\ >25 Positiv e Gliadin 6.1 <20 No No Referen Apr 24 informa informa ce 2014 Peptide tion in tion in Range:\ 2:26 PM Ab, source source .br\ IgA-VICTOR HUGO data data S <20 Negativ e\.br\ 20-25 Equivoc al\.br\ >25 Positiv e tTG Ab, 8.0 <20 No No Referen Apr 24 informa informa ce 2014 IgA-VICTOR HUGO tion in tion in Range:\ 2:26 PM S source source .br\ data data <20 Negativ e\.br\ 20-25 Equivoc al\.br\ >25 Positiv e\.br\\ .br\Bet ween 2-3% of Celiac patient s have selecti ve IgA deficie ncy. If the\.br \tTG IgA result is negativ e but Celiac disease is still suspect ed,\.br \total IgA should be measure d to identif y possibl e selecti ve IgA\.br \defici ency and to rule out a false negativ e. In cases of IgA\.br \defici ency, measure ment of tTG IgG should be conside red. tTG Ab, 8.6 <20 No No Referen Apr 24 informa informa ce 2015 IgG-VICTOR HUGO tion in tion in Range:\ 2:26 PM S source source .br\ data data <20 Negativ e\.br\ 20-25 Equivoc al\.br\ >25 Positiv e\.br\\ .br\Per formed at: [facility] [employer] [facility]\.br\ [address] [facility], [address]br \ [place] [address] CMP Observa Value Referen Units Interpr Notes Date tion ce etation Range Sodium 140 136 - mmol/L No No Apr 23 145 informa informa 2014 tion in tion in 3:45 PM source source data data Potassi 3.8 3.5 - mmol/L No No Apr 23 um 5.0 informa informa 2014 [Moles/ tion in tion in 3:45 PM volume] source source in data data Serum or Plasma Chlorid 98 98 - mmol/L No No Apr 23 e 107 informa informa 2014 tion in tion in 3:45 PM source source data data Carbon 27 22 - 29 mmol/L No No Apr 23 dioxide informa informa 2014 , total tion in tion in 3:45 PM source source [Moles/ data data volume] in Serum or Plasma Anion 15 7 - 16 mmol/L No No Apr 23 Gap informa informa 2014 tion in tion in 3:45 PM source source data data CALCIUM 10.1 8.6 - mg/dL No No Apr 23 .TOTAL 10.2 informa informa 2014 tion in tion in 3:45 PM source source data data Glucose 95 74 - mg/dL No No Apr 23 Lvl 100 informa informa 2014 tion in tion in 3:45 PM source source data data BUN 19 6 - 20 mg/dL No No Apr 23 informa informa 2014 tion in tion in 3:45 PM source source data data Creatin 0.70 0.51 - mg/dL No No Apr 23 ine 1.30 informa informa 2014 tion in tion in 3:45 PM source source data data Albumin 4.8 3.5 - gm/dL No No Apr 23 5.2 informa informa 2014 [Mass/v tion in tion in 3:45 PM olume] source source in data data Serum or Plasma Protein 7.9 6.4 - gm/dL No No Apr 23 8.3 informa informa 2014 [Mass/v tion in tion in 3:45 PM olume] source source in data data Serum or Plasma Bilirub 0.3 0.1 - mg/dL No No Apr 23 in.tota 1.3 informa informa 2014 l tion in tion in 3:45 PM [Mass/v source source olume] data data in Serum or Plasma ASPARTA 28 <=40 IU/L No No Apr 23 TE informa informa 2014 AMINOTR tion in tion in 3:45 PM ANSFERA source source SE data data Alanine 53 <=41 IU/L High No Apr 23 informa 2014 aminotr tion in 3:45 PM ansfera source se data [Enzyma tic activit y/volum e] in Serum or Plasma Alkalin 82 35 - IU/L No No Apr 23 e 104 informa informa 2014 phospha tion in tion in 3:45 PM tase source source [Enzyma data data tic activit y/volum e] in Serum or Plasma Sed Rate Observa Value Referen Units Interpr Notes Date tion ce etation Range Erythro 16 0 - 30 mm No No Jan 09 cyte informa informa 2014 sedimen tion in tion in 7:43 PM tation source source rate by data data Westerg shelly method Lipid Refx Observa Value Referen Units Interpr Notes Date tion ce etation Range Cholest 298 <=200 mg/dL High < 200 Sep 24 rubia 2014 [Percen 4:39 PM tile] Desirab le\.br\ 200 - 239 Borderl ine High\.b r\>= 240 High TRIGLYC 144 <=150 mg/dL No < 150 Sep ERIDES. informa 2014 TOTAL tion in Normal\ 4:39 PM source .br\150 data - 199 Borderl ine High\.b r\200 - 499 High\.b r\ >= 500 Very High CHOLEST 65 >=40 mg/dL No > 60 Sep 24 EROLS.I informa 2014 N HDL tion in Optimal 4:39 PM source \.br\40 data - 60 Accepta ble\.br \ < 40 Low LDL Observa Value Referen Units Interpr Notes Date tion ce etation Range LDL 204 <=100 mg/dL High < 100 Sep 24 Calcula 2014 tash 4:39 PM Optimal \.br\10 0 - 129 Near or above optimal \.br\13 0 - 159 Borderl ine High\.b r\160 - 189 High\.b r\ >= 190 Very High TSH Observa Value Referen Units Interpr Notes Date tion ce etation Range Thyrotr 1.850 0.270 - mcIU/mL No No Sep 24 opin 4.200 informa informa 2013 [Units/ tion in tion in 4:39 PM volume] source source in data data Serum or Plasma Uric Acid Observa Value Referen Units Interpr Notes Date tion ce etation Range Urate 7.4 2.4 - mg/dL High No Sep 24 [Mass/v 5.7 informa 2014 olume] tion in 4:39 PM in source Serum data or Plasma Auto Diff Observa Value Referen Units Interpr Notes Date tion ce etation Range Neutrop 55.1 No % No No Sep 24 hils informa informa informa 2013 [#/volu tion in tion in tion in 4:36 PM me] in source source source Blood data data data by Automat ed count Lymphoc 34.6 No % No No Sep 24 ytes informa informa informa 2013 [#/volu tion in tion in tion in 4:36 PM me] in source source source Blood data data data by Automat ed count Monocyt 6.6 No % No No Sep 24 es informa informa informa 2013 [#/volu tion in tion in tion in 4:36 PM me] in source source source Blood data data data by Automat ed count Eos 3.3 No % No No Sep 24 Percent informa informa informa 2014 tion in tion in tion in 4:36 PM source source source data data data Baso 0.4 No % No No Sep 24 Percent informa informa informa 2013 tion in tion in tion in 4:36 PM source source source data data data Neut# 4.6 1.8 - x10(3)/ No No Sep 24 7.7 mcL informa informa 2013 tion in tion in 4:36 PM source source data data Lymph# 2.9 0.6 - x10(3)/ No No Sep 24 4.8 mcL informa informa 2013 tion in tion in 4:36 PM source source data data [place]# 0.6 0.0 - x10(3)/ No No Sep 24 1.3 mcL informa informa 2014 tion in tion in 4:36 PM source source data data Eos# 0.3 0.0 - x10(3)/ No No Sep 24 0.5 mcL informa informa 2013 tion in tion in 4:36 PM source source data data Baso# 0.0 0.0 - x10(3)/ No No Sep 24 0.2 mcL informa informa 2013 tion in tion in 4:36 PM source source data data CBC Observa Value Referen Units Interpr Notes Date tion ce etation Range LEUKOCY 8.4 4.0 - x10(3)/ No No Sep 24 ADELSO 11.0 mcL informa informa 2013 tion in tion in 4:36 PM source source data data Erythro 4.30 3.80 - x10(6)/ No No Sep 24 cytes 5.10 mcL informa informa 2013 [#/volu tion in tion in 4:36 PM me] in source source Blood data data by Automat ed count Hemoglo 12.1 12.0 - gm/dL No No Sep 24 bin 15.6 informa informa 2013 [Mass/v tion in tion in 4:36 PM olume] source source in data data Blood Hematoc 36.4 35.7 - % No No Sep 24 rit 45.9 informa informa 2013 [Volume tion in tion in 4:36 PM source source Fractio data data n] of Blood by Automat ed count Erythro 84.7 82.5 - fL No No Sep 24 cyte 99.8 informa informa 2014 mean tion in tion in 4:36 PM corpusc source source ular data data volume [Entiti c volume] by Automat ed count Erythro 28.0 27.0 - pg No No Dec 24 cyte 34.3 informa informa 2014 mean tion in tion in 4:36 PM corpusc source source ular data data hemoglo bin [Entiti c mass] by Automat ed count Erythro 33.1 32.1 - gm/dL No No Jan 09 cyte 35.3 informa informa 2014 mean tion in tion in 4:36 PM corpusc source source ular data data hemoglo bin concent ration [Mass/v olume] by Automat ed count Erythro 14.2 11.5 - % No No Jan 09 cyte 15.0 informa informa 2014 distrib tion in tion in 4:36 PM ution source source width data data [Ratio] by Automat ed count Platele 303 144 - x10(3)/ No No Dec 24 ts 423 mcL informa informa 2014 [#/volu tion in tion in 4:36 PM me] in source source Blood data data by Automat ed count MPV 8.2 6.8 - fL No No Jan 09 10.8 informa informa 2014 tion in tion in 4:36 PM source source data data
--- OUTSIDE RECORDS SUMMARY | 2017-03-20 15:08 | External Medical Summary Rpt ---
Author Author YAS Felicita, [employer] Address Unknown Phone Unavailable [...] Plasma RESU LTS CALLED TO: 01/12/17 1732 [place] Sodium 136 - 145 mmoL/L Normal [...] scan will follow via compute r,mail, or appraiser [employer] and marine deliver Mariluz rmed at: CB - [facility] [address], [place], [place] [address] 69Lab Directo r: Neo lin PhD, Phone: [phone] Albumin 2.9 - 4.4 g/dL Low No [...] data data L. [Presen pneumop ce] in [facility] Urine serogro by up 1 Immunoa antigen ssay in urine, suggest ing no recent or current infecti on.Legi onnaire s' disease cannot be ruled out since otherse rogroup s and species may also cause disease .Perfor med at: BN - [facility] [address] [id number] 61Lab Directo r: Maynor Herrera MD, Phone: [phone] Hemoglobin & Hematocrit panel in Blood Observa Value Referen Units Interpr Notes Date tion ce etation Range COMMENTS TO VICE PRESIDENT OF NURSING: ONE HR POST TRANSFUSION Hematocri 37.0 - [...] source source source 17 data data data [id number] prepara O POS tion RELEASE [Type] D Darline Vidal Blood product special preparation [Type] Observa Value Referen Units Interpr Notes Date ti ce etation Range Blood BLOOD No No No BLOOD Dec 13 product UNIT informa informa informa UNIT # 2017 RELEASE tion in tion in ti in : 2:00 PM special source source source [id number] data data data [id number] prepara 2 tion [id number] [Type] LEASED 7 Rachel Valentin Blood type [...] Serum or Plasma RESU LTS CALLED TO: [facility] 12/10/16 1714 AviOtis manuel Sodium 136 - [...] Jamey Salas Coaguljeanne Roberson on assay n, [place] [id number] Tobacco Sieve Operator: Maynor Herrera MD, Phone: [phone] Erythrocyte sedimentation rate by Westergren method [...] source source source data data data data [facility]\ .br\Int erpreti ve Stateme nts\.br [...] data data data examina tion at the [facility] are Vascula r Laborat ory.\.b r\The complet e report can be found in the [facility] ([facility]) Electro gama Medical Record of the patient [...] in 9:36 PM source source data data [place]# 0.7 0.0 - x10(3)/ No No Apr [...] in 8:13 PM source source data data [place]# 0.7 0.0 - x10(3)/ No No Feb [...] in 8:48 PM source source data data [place]# 0.7 0.0 - x10(3)/ No No Mar [...] in 12:56 source source PM data data [place]# 0.6 0.0 - x10(3)/ No No Oct [...] 's informa tion was entered into a [employer] r system with a\.br\t arget\. br\due date [...] ------- ------- ------- ------- ------- ---\.br \\.br\[facility] ation criteri a for BMD [...] are reporte d in females prior to [facility] and in\.br\ males younger than [...] in 5:16 PM source source data data [place]# 0.5 0.0 - x10(3)/ No No Manny [...] in 9:29 PM source source data data [place]# 0.7 0.0 - x10(3)/ No No Mar [...] 's informa tion was entered into a [employer] r system with a\.br\t arget\. br\due date [...] source Diag, data data [facility]b r\ [address].br \ [facility], [place] SSB IgG-SOLS Observa Value Referen Units Interpr Notes Date tion ce etation Range SSB <1.0 <1.0 No No May 15 ([place]) NEG NEG AI informa informa Please 2015 Antibod tion in tion in note 11:59 y, source source change AM IgG-VICTOR HUGO data data in S referen ce range(s ). \.br\ Perform ed at: [facility]\.br\ [address], [address]br \ [place] [address] SSA IgG-SOLS Observa Value Referen Units Interpr Notes Date tion ce etation Range SSA <1.0 <1.0 No No May 15 (Ro)Ant NEG NEG AI informa informa Please 2015 ibody tion in tion in note 11:59 IgG-VICTOR HUGO source source change AM S data data in referen ce range(s ). \.br\ Perform ed at: [facility]\.br\ [address], [address]br \ [facility] [place] [address] CCP IgG-SOLS Observa Value Referen Units Interpr [...] of the\.br \ followi ng tests: RF (11710) , CRP (69121) , and ESR (93424) .\.br\ [email or web address] practic e/clini natali/cla ssifica tion/ra /ra_201 0.asp\. br\Perf ormed at: [facility]\.br\ [address] [facility], [address]br \ [place] [address] FLACO Scn Observa Value Referen Units Interpr [...] tion in 2:26 AM Ab, source source [employer] Total-S data data [facility] s\.br\ [employer], [address]br \ [place] [address] Sed Rate Observa Value Referen Units Interpr [...] in 7:15 PM source source data data [place]# 0.7 0.0 - x10(3)/ No No May [...] tion in 2:01 PM -SOLS source source [facility] data data [facility] s\.br\ [address], [address]br \ [place] [address] Celiac Panel 10-SOLS Observa Value Referen Units [...] al\.br\ >25 Positiv e\.br\\ .br\Per formed at: [employer] [facility]\.br\ [address], [address]br \ [place] [address] CMP Observa Value Referen Units Interpr Notes [...] in 4:36 PM source source data data [place]# 0.6 0.0 - x10(3)/ No No Sep [...]
[2017-03-20] MEDS ORDERED: MUCINEX1200 MG PO (15:27)
[2017-03-20] MEDS ORDERED: FLONASE 50 MCG16 GM (15:27)
[2017-03-20] MEDS ORDERED: CLARITIN 10MG T10 MG PO (15:27)
[2017-03-20] MEDS ORDERED: DELSYM30 MG/5 ML PO (15:27)
[2017-03-20 15:44] VITALS: BP 105/80
== END 2017-03-20 15:44 | disposition home or self-care (01) ==
LOC: UTC 14:28
DX: J06.9 Acute upper respiratory infection, unspecified (principal); Z88.8 Allergy status to other drugs, medicaments and biological substances; Z79.82 Long term (current) use of aspirin; I10 Essential (primary) hypertension; E78.5 Hyperlipidemia, unspecified